=== PATIENT | male | born 1980 | race Caucasian/White ===

== ENCOUNTER 2017-09-12 11:43 | Inpatient (IN) | payer OTHER, SELFPAY ==
[2017-09-12] MEDS ORDERED: Fentanyl 100 MCG/2 ML VIAL ONE ×3 (11:55→15:34)
[2017-09-12] MEDS ORDERED: CEFAZOLIN/Water 2 GM/20 ML SYRINGE ONE (11:55)
[2017-09-12] MEDS ORDERED: Adacel (T-DAP) 0.5 ML VIAL ONE (11:55)
[2017-09-12 12:11] LABS: Hemoglobin 16.9 g/dL (14.0-18.0); Mean Corpuscular Volume 94.1 fl (80.0-94.0); Mean Platelet Volume 6.6 fL (7.4-10.4); Platelet Count 343 thou/uL (130-400); RBC Distribution Width 11.5 % (11.5-14.5); Red Blood Cell (RBC) Count 5.27 mill/uL (4.70-6.10); White Blood Cell (WBC) Count 22.3 thou/uL (4.8-10.8)
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
[2017-09-12 12:24] LABS: ALT (SGPT) 27 U/L (8-55); AST (SGOT) 23 U/L (5-34); Albumin 3.9 g/dL (3.5-5.0); Alkaline Phosphatase 70 U/L (40-150); Anion Gap 18 mmol/L (10-20); BUN (Urea Nitrogen) 11 mg/dL (8.9-20.6); Bilirubin, Total 1.2 mg/dL (0.2-1.2); Calc. Creatinine Clearance 0 mL/min (70-130); Calcium 9.8 mg/dL (7.8-10.44); Carbon Dioxide 20 mmol/L (22-29); Chloride 104 mmol/L (98-107); Estimated GFR-MDRD 64; Globulin 3.2 g/dL (2.4-3.5); Glucose 226 mg/dL (70-105); Potassium 3.7 mmol/L (3.5-5.1); Protein, Total 7.1 g/dL (6.0-8.3); Sodium 138 mmol/L (136-145)
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
[2017-09-12] MEDS ORDERED: Neomycin-Polymyxin 1 ML AMP ONE (12:39)
[2017-09-12] MEDS ORDERED: HYDROmorphone 0.5 MG/0.5 ML SYRINGE ONE ×2 (12:45→15:16)
[2017-09-12] MEDS ORDERED: Gentamicin 80 MG/2 ML VIAL ONE (12:46)
[2017-09-12] MEDS ORDERED: cefTRIAXone\\ROCEPHIN 2 GM VIAL ONE (12:46)
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
[2017-09-12] MEDS ORDERED: Fentanyl 250 MCG/5 ML VIAL ONE (12:52)
[2017-09-12] MEDS ORDERED: Ondansetron ODT 4 MG TAB PO PRN (12:54)
[2017-09-12] MEDS ORDERED: Dextrose 5% in Water 1,000 ML IV PRN (12:54)
[2017-09-12] MEDS ORDERED: Morphine 4 MG/ML Carpuject IVP PRN (12:54)
[2017-09-12] MEDS ORDERED: Dextrose 50% Abboject 50 ML SYRINGE SLOW IVP PRN (12:54)
[2017-09-12 12:56] LABS: Band 10 % (5-11); Eosinophils 2 % (0-10); Lymphocytes 11 % (21-51); MDiff Complete? YES; Monocytes 5 % (0-10); Neutrophil 72 % (42-75); PLT Morphology Comment Appears Adequate
[2017-09-12] MEDS ORDERED: ADMIXTURE FEE IVPB SCH (13:00)
[2017-09-12] MEDS ORDERED: SODIUM CHLORIDE IVPB SCH (13:00)
[2017-09-12] MEDS ORDERED: GENTAMICIN SULFATE IVPB SCH (13:00)
[2017-09-12] MEDS ORDERED: Morphine 4 MG/ML VIAL IV PRN ×2 (13:24)
[2017-09-12] MEDS ORDERED: Naloxone HCl 0.4 mg/ml Vial IV PRN (13:31)
[2017-09-12] MEDS ORDERED: Promethazine HCl 25 MG/ML VIAL IM PRN (13:31)
[2017-09-12] MEDS ORDERED: diphenhydrAMINE 50 MG/ML VIAL IM PRN (13:31)
[2017-09-12] MEDS ORDERED: Zolpidem Tartrate 5 MG TAB PO PRN (13:31)
[2017-09-12] MEDS ORDERED: Ondansetron HCl/PF 4 MG/2 ML Vial IVP PRN ×3 (13:31→16:12)
[2017-09-12] MEDS ORDERED: diphenhydrAMINE 50 MG/ML VIAL IVP PRN (13:31)
[2017-09-12 13:35] LABS: Bilirubin Negative (Negative); Blood, Urine Negative (Negative); Clarity CLEAR (Clear); Glucose, Urine (Dipstick) Negative (Negative); Leukocyte Negative (Negative); Nitrite Negative (Negative); Protein, Urine (Dipstick) Negative (Neg-Trace); Urobilinogen 0.2 mg/dL (0.2-1.0)
[2017-09-12 13:38] LABS: Specific Gravity, Urine 1.052 (1.002-1.036)
[2017-09-12] MEDS ORDERED: Communication Order-Pharmacy FS SCH ×2 (13:45)
[2017-09-12] MEDS ORDERED: TETANUS AND DIPHTHERIA TOX/PF 0.5 ML DISP.SYRIN IM SCH (13:45)
[2017-09-12] MEDS ORDERED: Albumin 5% 500 ML ONE (13:58)
--- NOTE | 2017-09-12 14:30 | CT ---
CTA OF THE PELVIS AND BILATERAL LOWER EXTREMITIES FOR RUNOFF: Date: 09/12/17 HISTORY: Comminuted femur fracture. Evaluate for vascular compromise to the left leg. TECHNIQUE: Multiple contiguous axial images were obtained in a CTA of the pelvis and bilateral lower extremities for runoff. This extends down to the ankles. 3D sagittal and coronal MIP reformats were performed. FINDINGS: There is a comminuted fracture of the left femur. The patient has an incidentally seen horseshoe kidn ey. The distal aorta is normal in caliber and branches in normal appearing common iliac arteries. The int ernal iliac arteries and common iliac arteries are normal in appearance. Both common femoral arteries are unremarkable. Superficial femoral arteries and profunda femoral fer marycruz are normal in appearance. The left superficial femoral artery is adjacent to some of the fractur e fragments, but there is no evidence of dissection or extravasation of contrast from the left superf icial femoral artery. Both popliteal arteries are patent. There is normal bilateral three vessel runoff. IMPRESSION: Comminuted fracture of the left femur with the left superficial femoral artery being immediately andre cent to the fracture fragments without definite vascular abnormality of the superficial femoral arter y. POS: [facility]
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
[2017-09-12] MEDS ORDERED: ISOVUE-370 76%-LOCM 1 ML ONE ×2 (15:51→15:52)
[2017-09-12] MEDS ORDERED: PHENYLEPHRINE-NS 100 MCG/ML 10 ML SYRINGE ONE (15:57)
[2017-09-12] MEDS ORDERED: Glycopyrrolate 0.2 MG/ML 5 ML SYRINGE ONE (15:57)
[2017-09-12] MEDS ORDERED: Lidocaine 1% PF 5 ML VIAL ONE (15:57)
[2017-09-12] MEDS ORDERED: Succinylcholine Chloride 20 MG/ML 10 ml SYRINGE FS ONE (15:57)
[2017-09-12] MEDS ORDERED: PROPOFOL 200 MG/20 ML VIAL ONE (15:57)
[2017-09-12] MEDS ORDERED: Promethazine HCl 25 MG/ML VIAL IM/IV PRN ×2 (16:12)
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
[2017-09-12] MEDS: Sodium Chloride 0.9% 1,000 ML IV SCH ×2 (17:00→20:55)
--- NOTE | 2017-09-12 19:25 | RAD ---
LEFT FEMUR ORIF FOUR FLUOROSCOPIC IMAGES: COMPARISON: Prior exam dated 09/12/2017. FINDINGS: Since the comparison exam, there has been interval placement of an external fixator, spanning the com minuted distal left femoral shaft fracture. There are two fixator pins seen within the proximal femo ral shaft and two fixator pins seen within the proximal tibia. There are radiolucent spanning rods n ear the fracture site. Fracture alignment is difficult to assess on the provided images. Fluoroscop ic time was 12.2 seconds. Total exposure was 1.69 mGy. IMPRESSION: Intraoperative C-arm images demonstrate external fixator placement of the left leg, spanning the comm inuted left distal femoral shaft fracture. POS: [facility]
[2017-09-12] MEDS: Acetaminophen 500 MG TAB PO SCH ×2 (20:54→23:10)
[2017-09-12] MEDS: traMADol HCl 50 MG TAB PO SCH ×2 (20:55→23:10)
[2017-09-12] MEDS: CEFAZOLIN/Water 2 GM/20 ML SYRINGE SLOW IVP SCH (22:19)
[2017-09-12] MEDS: Famotidine 20 MG TAB PO SCH (22:27)
--- NOTE | 2017-09-12 23:25 | PRG ---
DATE OF SERVICE: 09/12/2017 SUBJECTIVE: Patient is currently on the surgical floor. He has just been moved here from the [facility], where he had undergone irrigation, debridement, and external fixator placement of his left femur. The patient reportedly tolerated this procedure well and is currently asleep on the surgical floor. Patient does open his eyes to verbal stimuli, but states that he is still very drow sy. OBJECTIVE: CHEST: Lungs are clear to auscultation bilaterally. HEART: Regular rate and rhythm. ABDOMEN: Soft and nontender with hypoactive bowel sounds. EXTREMITIES: Neurovascularly intact x4. Right lower extremity has external fixator in place. He do es have strong pulses distally. ASSESSMENT AND PLAN: Status post crush injury. The patient was noted to have climbing of CK on his chemistries and a borderline renal function, so we will start a bicarbonate drip and recheck his labs in the morning. Otherwise, continue supportive care and per Orthopedics, the patient will most like ly go for IM nailing of his femur on Tuesday.
[2017-09-13] MEDS: Sodium Bicarbonate 150 MEQ in Dextrose 5% in Water 1,000 ML IV SCH ×4 (00:03→08:33)
[2017-09-13] MEDS: Acetaminophen 500 MG TAB PO SCH ×4 (04:09→22:50)
[2017-09-13] MEDS: traMADol HCl 50 MG TAB PO SCH ×4 (04:10→22:50)
[2017-09-13] MEDS: HYDROmorphone 10 mg/100 ml CADD IVPB PRN (04:44)
[2017-09-13] MEDS: CEFAZOLIN/Water 2 GM/20 ML SYRINGE SLOW IVP SCH ×3 (04:44→21:18)
[2017-09-13 06:02] LABS: #Lymphocytes 0.5 thou/uL (1.20-3.40); #Monocytes 1.4 thou/uL (0.11-0.59); #Neutrophils 9.2 thou/uL (1.40-6.50); %Eosinophils 0.1 % (0.0-10.0); %Lymphocytes 4.5 % (21.0-51.0); %Monocytes 12.3 % (0.0-10.0); %Neutrophils 83.1 % (42.0-75.0); Mean Corpuscular HGB CONC 33.1 g/dL (32.0-36.0); Mean Corpuscular Hemoglobin 31.6 pg (27.0-31.0); Mean Corpuscular Volume 95.4 fl (80.0-94.0); Mean Platelet Volume 6.5 fL (7.4-10.4); Platelet Count 222 thou/uL (130-400); RBC Distribution Width 11.5 % (11.5-14.5); Red Blood Cell (RBC) Count 3.49 mill/uL (4.70-6.10)
[2017-09-13 06:46] LABS: Anion Gap 11 mmol/L (10-20); BUN (Urea Nitrogen) 10 mg/dL (8.9-20.6); CK (CPK) 1494 U/L (30-200); Calc. Creatinine Clearance 0 mL/min (70-130); Calcium 7.9 mg/dL (7.8-10.44); Carbon Dioxide 27 mmol/L (22-29); Chloride 104 mmol/L (98-107); Estimated GFR-MDRD Greater than 90; Glucose 157 mg/dL (70-105); Phosphorus 3.6 mg/dL (2.3-4.7); Potassium 4.3 mmol/L (3.5-5.1); Sodium 138 mmol/L (136-145)
[2017-09-13] MEDS: Famotidine 20 MG TAB PO SCH ×2 (08:39→21:18)
[2017-09-13] MEDS ORDERED: Enoxaparin Sodium 40 MG/0.4 ML SYRINGE SC SCH ×2 (09:00→11:00)
[2017-09-13] MEDS: Scopolamine 1.5 mg/72 hour Patch TD SCH (10:16)
[2017-09-13] MEDS: Sodium Chloride 0.9% 1,000 ML IV SCH ×4 (12:09→22:45)
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
[2017-09-13] MEDS: cefTRIAXone\\ROCEPHIN 2 GM in Sodium Chloride 0.9% 100 ML IVPB SCH (12:11)
[2017-09-13] MEDS: Oxazepam 10 MG CAP PO SCH ×2 (15:00→22:54)
[2017-09-13] MEDS ORDERED: Sodium Chloride 0.9% 1,000 ML IV SCH (21:30)
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
[2017-09-14] MEDS: Sodium Chloride 0.9% 1,000 ML IV SCH ×4 (03:40→21:24)
[2017-09-14] MEDS: Acetaminophen 500 MG TAB PO SCH ×2 (04:49→08:11)
[2017-09-14] MEDS: traMADol HCl 50 MG TAB PO SCH ×2 (04:49→08:11)
[2017-09-14] MEDS: CEFAZOLIN/Water 2 GM/20 ML SYRINGE SLOW IVP SCH ×3 (04:50→21:25)
[2017-09-14] MEDS: Folic Acid 1 MG TAB PO SCH (08:10)
[2017-09-14] MEDS: Famotidine 20 MG TAB PO SCH ×2 (08:10→21:25)
[2017-09-14] MEDS: Oxazepam 10 MG CAP PO SCH ×3 (08:11→21:29)
[2017-09-14 09:30] LABS: #Lymphocytes 1.1 thou/uL (1.20-3.40); #Monocytes 0.9 thou/uL (0.11-0.59); #Neutrophils 6.4 thou/uL (1.40-6.50); %Basophils 0.1 % (0.0-1.0); %Eosinophils 0.3 % (0.0-10.0); %Lymphocytes 13.1 % (21.0-51.0); %Monocytes 10.6 % (0.0-10.0); %Neutrophils 75.9 % (42.0-75.0); Hemoglobin 8.8 g/dL (14.0-18.0); Mean Corpuscular HGB CONC 33.8 g/dL (32.0-36.0); Mean Corpuscular Hemoglobin 32.6 pg (27.0-31.0); Mean Corpuscular Volume 96.6 fl (80.0-94.0); Mean Platelet Volume 6.6 fL (7.4-10.4); Platelet Count 160 thou/uL (130-400); RBC Distribution Width 11.4 % (11.5-14.5); Red Blood Cell (RBC) Count 2.68 mill/uL (4.70-6.10); White Blood Cell (WBC) Count 8.4 thou/uL (4.8-10.8)
[2017-09-14 09:54] LABS: Anion Gap 7 mmol/L (10-20); BUN (Urea Nitrogen) 7 mg/dL (8.9-20.6); Calc. Creatinine Clearance 0 mL/min (70-130); Calcium 7.9 mg/dL (7.8-10.44); Carbon Dioxide 28 mmol/L (22-29); Chloride 104 mmol/L (98-107); Estimated GFR-MDRD Greater than 90; Glucose 100 mg/dL (70-105); Magnesium 1.8 mg/dL (1.6-2.6); Phosphorus 1.9 mg/dL (2.3-4.7); Potassium 3.9 mmol/L (3.5-5.1); Sodium 135 mmol/L (136-145)
[2017-09-14] MEDS ORDERED: MAGNESIUM SULFATE IVPB SCH (10:15)
[2017-09-14] MEDS ORDERED: [UNRECOGNIZED DRUG - OTHER] IVPB SCH (10:15)
[2017-09-14] MEDS ORDERED: ADMIXTURE FEE IVPB SCH (10:15)
[2017-09-14] MEDS ORDERED: POTASSIUM PHOSPHATE IVPB SCH (10:15)
--- NOTE | 2017-09-14 10:33 | PQF ---
DATE: 09-14-17 ATTN: DR. REBECCA KONG Please exercise your independent, professional judgment in responding to the clarification form. Clinical indicators are provided on the bottom of this form for your review Please check appropriate box(s): [ x ] Acute blood loss anemia [ ] Post-op anemia related to acute blood loss [ ] Other diagnosis [ ] Unable to determine In addition, please specify: Present on Admission (POA): [ x ] Yes [ ] No [ ] Unable to determine For continuity of documentation, please document condition throughout progress notes and discharge summary. Thank You. CLINICAL INDICATORS - SIGNS / SYMPTOMS / LABS HEMOGLOBIN: 09-12-17: 16.9 09-13-17: 11.0 09-14-17: 8.8 HEMATOCRIT: 09-12-17: 49.6 09-13-17: 33.3 09-14-17: 25.9 HYPOTENSION: 09-13-17: 93/58, 93/58 09-14-17: 91/58 ER DOCUMENTATION: BLEEDING MOSTLY CONTROLLED BUT LOST APPROX 500CC OF BLOOD ON SCENE. OPERATIVE NOTE 09-12-17: ESTIMATED BLOOD LOSS: 200 ML RISK FACTORS: H&P: GRADE 3B OPEN COMMINUTED DISPLACED DISTAL TWO-THIRDS LEFT FEMUR FRACTURE OPERATIVE NOTE 09-12-17: IRRIGATION AND DEBRIDEMENT OF LEFT GRADE 3 OPEN FEMUR FX, EXTERNAL FIXATION OF LEFT OPEN FEMUR FRACTURE TREATMENTS:MONITORING H&H NURSING NOTE 09-14-17: ORDERED 1L BOLUS NS (MAR) FOLIC ACID (This form is maintained as a part of the permanent medical record) 2014 [employer], [employer]. All Rights Reserved LESLIE [email or web address] Office: [phone] [facility]ITALHa[facility]
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
[2017-09-14] MEDS ORDERED: Midazolam HCl 2 mg/2 ml Vial ONE (10:55)
[2017-09-14] MEDS ORDERED: Fentanyl 100 MCG/2 ML VIAL ONE ×3 (10:55→13:23)
[2017-09-14] MEDS ORDERED: Ondansetron HCl/PF 4 MG/2 ML Vial ONE ×2 (10:56→11:18)
[2017-09-14] MEDS ORDERED: cefTRIAXone\\ROCEPHIN 1 GM VIAL ONE (11:09)
[2017-09-14] MEDS ORDERED: Glycopyrrolate 0.2 MG/ML 5 ML SYRINGE ONE (11:18)
[2017-09-14] MEDS ORDERED: Esmolol 100 MG/10 ML VIAL ONE (11:18)
[2017-09-14] MEDS ORDERED: Dexamethasone 20 MG/5 ML VIAL ONE ×2 (11:18)
[2017-09-14] MEDS ORDERED: PROPOFOL 200 MG/20 ML VIAL ONE (11:18)
[2017-09-14] MEDS ORDERED: Lidocaine 1% PF 5 ML VIAL ONE (11:18)
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
[2017-09-14] MEDS ORDERED: cefTRIAXone\\ROCEPHIN 2 GM in Sodium Chloride 0.9% 100 ML IVPB SCH (11:45)
[2017-09-14] MEDS ORDERED: HYDROmorphone 2 MG/ML VIAL SLOW IVP PRN ×2 (12:21)
[2017-09-14] MEDS ORDERED: Promethazine HCl 25 MG/ML VIAL SLOW IVP PRN ×2 (12:21)
[2017-09-14] MEDS ORDERED: Morphine Sulfate 2 MG/ML SYRINGE SLOW IVP PRN ×2 (12:21)
[2017-09-14] MEDS ORDERED: Meperidine HCl/PF 25 MG/ML VIAL SLOW IVP PRN ×2 (12:21)
[2017-09-14] MEDS ORDERED: HYDROmorphone 0.5 MG/0.5 ML SYRINGE ONE ×3 (14:18→15:14)
[2017-09-14 14:33] LABS: Hemoglobin 9.4 g/dL (14.0-18.0)
[2017-09-14] MEDS: cefTRIAXone\\ROCEPHIN 2 GM in Sodium Chloride 0.9% 100 ML IVPB SCH (15:34)
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
--- NOTE | 2017-09-14 16:45 | RAD ---
TWO VIEWS OF THE LEFT FEMUR: 09/14/17 COMPARISON: 09/12/17 HISTORY: Comminuted distal femur fracture. FINDINGS: Two views of the left femur, shows the patient to be status post retrograde intramedullary lenora fixati on of a comminuted distal femoral diaphyseal fracture. There is better alignment of the fracture. Air in the soft tissues is from recent surgery. IMPRESSION: Status post ORIF of femur fracture without evidence of complication. POS: C
[2017-09-14] MEDS: HYDROmorphone 10 mg/100 ml CADD IVPB PRN (17:14)
[2017-09-14] MEDS: HYDROcodone/Acetaminophen 10/325 mg Tablet PO SCH ×3 (17:25→21:25)
--- NOTE | 2017-09-14 18:23 | RAD ---
LEFT FEMUR TWO VIEWS: 09/14/17 Six portable fluoroscopic spot views are presented for interpretation. HISTORY: 36-year-old male for postoperative evaluation. COMPARISON: 09/02/17. An intramedullary lenora has been placed stabilizing a very markedly displaced, very markedly comminuted distal femoral shaft fracture. IMPRESSION: Intramedullary lenora placed stabilizing the femur and very extensively comminuted and displaced femoral diaphyseal fracture. Followup full length plain films of the right femur is suggested. POS: VERNON
[2017-09-15] MEDS: Sodium Chloride 0.9% 1,000 ML IV SCH ×5 (02:10→19:44)
[2017-09-15] MEDS: HYDROcodone/Acetaminophen 10/325 mg Tablet PO SCH ×3 (02:13→11:07)
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
[2017-09-15] MEDS: CEFAZOLIN/Water 2 GM/20 ML SYRINGE SLOW IVP SCH ×3 (05:03→23:41)
[2017-09-15 05:10] LABS: #Neutrophils 7.1 thou/uL (1.40-6.50); %Eosinophils 0.1 % (0.0-10.0); %Lymphocytes 10.5 % (21.0-51.0); %Neutrophils 78.4 % (42.0-75.0); Mean Corpuscular HGB CONC 34.6 g/dL (32.0-36.0); Mean Corpuscular Hemoglobin 33.3 pg (27.0-31.0); Mean Corpuscular Volume 96.1 fl (80.0-94.0); Platelet Count 166 thou/uL (130-400); RBC Distribution Width 11.1 % (11.5-14.5); Red Blood Cell (RBC) Count 2.39 mill/uL (4.70-6.10)
[2017-09-15 05:21] LABS: Anion Gap 5 mmol/L (10-20); BUN (Urea Nitrogen) 7 mg/dL (8.9-20.6); CK (CPK) 2634 U/L (30-200); Calc. Creatinine Clearance 223 mL/min (70-130); Calcium 8.1 mg/dL (7.8-10.44); Carbon Dioxide 29 mmol/L (22-29); Chloride 105 mmol/L (98-107); Estimated GFR-MDRD Greater than 90; Glucose 115 mg/dL (70-105); Magnesium 2.2 mg/dL (1.6-2.6); Phosphorus 2.3 mg/dL (2.3-4.7); Potassium 3.8 mmol/L (3.5-5.1); Sodium 135 mmol/L (136-145)
[2017-09-15] MEDS ORDERED: Potassium Chloride 20 MEQ TAB PO SCH ×2 (08:00)
[2017-09-15] MEDS ORDERED: Sodium Chloride 0.9% 250 ML IV SCH (08:00)
[2017-09-15] MEDS: Ascorbic Acid 500 mg Chewable Tablet PO SCH ×2 (08:41→17:44)
[2017-09-15] MEDS: Folic Acid 1 MG TAB PO SCH (08:42)
[2017-09-15] MEDS: Senokot S 8.6-50 MG TAB PO SCH ×2 (08:42→21:10)
[2017-09-15] MEDS: Oxazepam 10 MG CAP PO SCH ×3 (08:42→21:10)
[2017-09-15] MEDS: Ferrous Sulfate 325 MG TAB PO SCH ×2 (08:42→17:45)
[2017-09-15] MEDS: Polyethylene Glycol 3350 17 GM Packet PO SCH (08:42)
[2017-09-15] MEDS: Enoxaparin Sodium 40 MG/0.4 ML SYRINGE SC SCH (08:42)
[2017-09-15] MEDS: Famotidine 20 MG TAB PO SCH ×2 (08:42→21:10)
[2017-09-15] MEDS ORDERED: traMADol HCl 50 MG TAB PO PRN (10:14)
[2017-09-15] MEDS ORDERED: HYDROcodone/Acetaminophen 10/325 mg Tablet PO PRN (10:16)
[2017-09-15] MEDS ORDERED: traMADol HCl 50 MG TAB PO SCH (10:30)
[2017-09-15] MEDS: Ibuprofen 800 MG TAB PO SCH ×2 (10:56→17:45)
[2017-09-15] MEDS: traMADol HCl 50 MG TAB PO SCH ×3 (10:56→21:54)
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
[2017-09-16] MEDS: Ibuprofen 800 MG TAB PO SCH ×3 (02:54→17:34)
[2017-09-16] MEDS: traMADol HCl 50 MG TAB PO SCH ×4 (03:58→21:41)
[2017-09-16] MEDS: CEFAZOLIN/Water 2 GM/20 ML SYRINGE SLOW IVP SCH ×4 (04:33→21:41)
[2017-09-16] MEDS: Ferrous Sulfate 325 MG TAB PO SCH ×2 (09:06→17:34)
[2017-09-16] MEDS: Folic Acid 1 MG TAB PO SCH (09:06)
[2017-09-16] MEDS: Famotidine 20 MG TAB PO SCH ×2 (09:06→21:40)
[2017-09-16] MEDS: Oxazepam 10 MG CAP PO SCH ×3 (09:06→21:41)
[2017-09-16] MEDS: Enoxaparin Sodium 40 MG/0.4 ML SYRINGE SC SCH (09:06)
[2017-09-16] MEDS: Ascorbic Acid 500 mg Chewable Tablet PO SCH ×2 (09:06→17:34)
[2017-09-16 09:23] LABS: Anion Gap 10 mmol/L (10-20); BUN (Urea Nitrogen) 10 mg/dL (8.9-20.6); CK (CPK) 2728 U/L (30-200); Calc. Creatinine Clearance 226 mL/min (70-130); Calcium 7.8 mg/dL (7.8-10.44); Carbon Dioxide 26 mmol/L (22-29); Chloride 104 mmol/L (98-107); Estimated GFR-MDRD Greater than 90; Glucose 120 mg/dL (70-105); Magnesium 1.8 mg/dL (1.6-2.6); Phosphorus 1.6 mg/dL (2.3-4.7); Potassium 3.5 mmol/L (3.5-5.1); Sodium 136 mmol/L (136-145)
[2017-09-16] MEDS: Scopolamine 1.5 mg/72 hour Patch TD SCH (10:23)
[2017-09-16] MEDS: Polyethylene Glycol 3350 17 GM Packet PO SCH (11:11)
[2017-09-16] MEDS: Senokot S 8.6-50 MG TAB PO SCH (11:12)
[2017-09-16] MEDS: HYDROcodone/Acetaminophen 10/325 mg Tablet PO PRN ×2 (12:26→21:41)
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
[2017-09-17] MEDS: Senokot S 8.6-50 MG TAB PO SCH ×3 (01:09→21:43)
[2017-09-17] MEDS: Ibuprofen 800 MG TAB PO SCH ×3 (03:55→17:58)
[2017-09-17] MEDS: traMADol HCl 50 MG TAB PO SCH ×4 (03:56→21:44)
[2017-09-17] MEDS: HYDROcodone/Acetaminophen 10/325 mg Tablet PO PRN ×3 (03:56→21:44)
[2017-09-17] MEDS: Folic Acid 1 MG TAB PO SCH (08:09)
[2017-09-17] MEDS: Enoxaparin Sodium 40 MG/0.4 ML SYRINGE SC SCH (08:09)
[2017-09-17] MEDS: Ascorbic Acid 500 mg Chewable Tablet PO SCH ×2 (08:09→16:43)
[2017-09-17] MEDS: Famotidine 20 MG TAB PO SCH ×2 (08:09→21:43)
[2017-09-17] MEDS: Oxazepam 10 MG CAP PO SCH ×3 (08:10→21:43)
[2017-09-17] MEDS: Ferrous Sulfate 325 MG TAB PO SCH ×2 (08:10→16:43)
[2017-09-17] MEDS: Polyethylene Glycol 3350 17 GM Packet PO SCH (08:10)
[2017-09-17 08:12] LABS: #Eosinphils 0.3 thou/uL (0.0-0.7); #Lymphocytes 1.3 thou/uL (1.20-3.40); #Monocytes 0.7 thou/uL (0.11-0.59); #Neutrophils 4.4 thou/uL (1.40-6.50); %Basophils 0.4 % (0.0-1.0); %Eosinophils 5.1 % (0.0-10.0); %Lymphocytes 19.3 % (21.0-51.0); %Monocytes 9.7 % (0.0-10.0); %Neutrophils 65.6 % (42.0-75.0); Hemoglobin 7.3 g/dL (14.0-18.0); Mean Corpuscular HGB CONC 34.7 g/dL (32.0-36.0); Mean Corpuscular Hemoglobin 32.7 pg (27.0-31.0); Mean Corpuscular Volume 94.4 fl (80.0-94.0); Mean Platelet Volume 5.9 fL (7.4-10.4); Platelet Count 258 thou/uL (130-400); RBC Distribution Width 11.3 % (11.5-14.5); Red Blood Cell (RBC) Count 2.24 mill/uL (4.70-6.10); White Blood Cell (WBC) Count 6.7 thou/uL (4.8-10.8)
[2017-09-17] MEDS: diphenhydrAMINE 25 MG CAP PO PRN ×2 (11:21→21:44)
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
[2017-09-18] MEDS: traMADol HCl 50 MG TAB PO SCH ×4 (03:48→22:16)
[2017-09-18] MEDS: Ibuprofen 800 MG TAB PO SCH ×3 (03:48→17:37)
[2017-09-18] MEDS: Polyethylene Glycol 3350 17 GM Packet PO SCH (07:49)
[2017-09-18] MEDS: Senokot S 8.6-50 MG TAB PO SCH (07:49)
[2017-09-18] MEDS: HYDROcodone/Acetaminophen 10/325 mg Tablet PO PRN ×3 (07:51→22:15)
[2017-09-18] MEDS: Famotidine 20 MG TAB PO SCH ×2 (07:51→20:45)
[2017-09-18] MEDS: Ascorbic Acid 500 mg Chewable Tablet PO SCH ×2 (07:51→18:28)
[2017-09-18] MEDS: Oxazepam 10 MG CAP PO SCH ×3 (07:51→20:45)
[2017-09-18] MEDS: Ferrous Sulfate 325 MG TAB PO SCH ×2 (07:52→16:47)
[2017-09-18] MEDS: Enoxaparin Sodium 40 MG/0.4 ML SYRINGE SC SCH (07:52)
[2017-09-18] MEDS: Folic Acid 1 MG TAB PO SCH (07:52)
[2017-09-18] MEDS ORDERED: Senokot S 8.6-50 MG TAB PO PRN (08:02)
[2017-09-18] MEDS ORDERED: Polyethylene Glycol 3350 17 GM Packet PO PRN (08:03)
[2017-09-18 08:04] LABS: Hemoglobin 7.6 g/dL (14.0-18.0); Mean Corpuscular HGB CONC 34.9 g/dL (32.0-36.0); Mean Corpuscular Hemoglobin 33.1 pg (27.0-31.0); Mean Platelet Volume 5.8 fL (7.4-10.4); Platelet Count 313 thou/uL (130-400); RBC Distribution Width 11.5 % (11.5-14.5); Red Blood Cell (RBC) Count 2.29 mill/uL (4.70-6.10); White Blood Cell (WBC) Count 6.9 thou/uL (4.8-10.8)
[2017-09-18 08:05] LABS: Anion Gap 9 mmol/L (10-20); BUN (Urea Nitrogen) 12 mg/dL (8.9-20.6); CK (CPK) 1067 U/L (30-200); Calc. Creatinine Clearance 216 mL/min (70-130); Calcium 8.5 mg/dL (7.8-10.44); Carbon Dioxide 28 mmol/L (22-29); Chloride 106 mmol/L (98-107); Estimated GFR-MDRD Greater than 90; Glucose 103 mg/dL (70-105); Magnesium 1.9 mg/dL (1.6-2.6); Phosphorus 3.4 mg/dL (2.3-4.7); Potassium 3.9 mmol/L (3.5-5.1); Sodium 139 mmol/L (136-145)
[2017-09-18 09:14] LABS: Band 4 % (5-11); Lymphocytes 14 % (21-51); MDiff Complete? YES; Metamyelocyte 7 % (0-0); Monocytes 5 % (0-10); Myelocyte 3 % (0-0); Neutrophil 67 % (42-75); PLT Morphology Comment Appears Adequate; RBC Morphology Normal
--- NOTE | 2017-09-18 09:29 | PRG ---
DATE OF SERVICE: 09/18/2017 ATTENDING PHYSICIAN: Dr. Prem Díaz. SUBJECTIVE: Mr. Espinoza is a 36-year-old man who is status post crush injury to the left leg. This is hospital day #18. He was treated initially with external fixator and now is postoperative day #4 st atus post ORIF of the left distal femur fracture. He is awake, alert, and has remained hemodynamical ly stable. He has had adequate pain control. He is having normal bowel function. He is tolerating regular diet. OBJECTIVE: VITAL SIGNS: Temperature 98, pulse 100, respirations 18, O2 sat 99% on room air, blood pressure 147/ 79. HEENT: Atraumatic, normocephalic. CARDIOVASCULAR: Regular rate and rhythm. Heart sounds normal. RESPIRATORY: Bilateral breath sounds. Clear to auscultation. No respiratory distress. ABDOMEN: Soft, nontender, nondistended. EXTREMITIES: Bilateral upper extremities within normal limits. Right lower extremity within normal limits. Knee immobilizer with Mars wrap in place to left lower extremity. Cap refill brisk. 2+ puls es. Neurovascular intact in all extremities. ASSESSMENT: 1. Status post crush injury to the left distal femur with open left distal femur fracture, status po st repair. 2. Acute rhabdomyolysis, stable. 3. Acute blood loss anemia, hemoglobin stable. PLAN: 1. Continue mobilization with physical and occupational therapy. 2. Daily labs pending this a.m. We will follow up. 3. Case management following the discharge planning. Anticipate will discharge to inpatient rehab v ers home with outpatient therapy. The patient is ready to move to rehab in [place] area of [place], [place] when worker's comp funding improved. 4. Lovenox for DVT prophylaxis. 5. Pepcid for PUD prophylaxis. The patient was seen and examined with Dr. Díaz who agrees with plan.
[2017-09-18] MEDS: diphenhydrAMINE 25 MG CAP PO PRN (22:15)
[2017-09-19] MEDS: Ibuprofen 800 MG TAB PO SCH ×2 (02:52→09:58)
[2017-09-19] MEDS: HYDROcodone/Acetaminophen 10/325 mg Tablet PO PRN ×2 (02:56→08:36)
[2017-09-19] MEDS: traMADol HCl 50 MG TAB PO SCH ×2 (05:21→09:58)
[2017-09-19 07:40] LABS: Hemoglobin 8.1 g/dL (14.0-18.0); Mean Corpuscular HGB CONC 34.4 g/dL (32.0-36.0); Mean Corpuscular Hemoglobin 32.3 pg (27.0-31.0); Mean Corpuscular Volume 94.1 fl (80.0-94.0); Mean Platelet Volume 5.4 fL (7.4-10.4); Platelet Count 383 thou/uL (130-400); RBC Distribution Width 11.8 % (11.5-14.5); Red Blood Cell (RBC) Count 2.49 mill/uL (4.70-6.10); White Blood Cell (WBC) Count 7.5 thou/uL (4.8-10.8)
[2017-09-19] MEDS: Oxazepam 10 MG CAP PO SCH ×3 (08:31→22:14)
[2017-09-19] MEDS: Famotidine 20 MG TAB PO SCH ×2 (08:31→22:14)
[2017-09-19] MEDS: Ascorbic Acid 500 mg Chewable Tablet PO SCH ×2 (08:31→17:59)
[2017-09-19] MEDS: Ferrous Sulfate 325 MG TAB PO SCH ×2 (08:32→17:58)
[2017-09-19] MEDS: Enoxaparin Sodium 40 MG/0.4 ML SYRINGE SC SCH (08:32)
[2017-09-19] MEDS: Folic Acid 1 MG TAB PO SCH (08:32)
[2017-09-19] MEDS: Scopolamine 1.5 mg/72 hour Patch TD SCH (08:33)
[2017-09-19 09:15] LABS: Band 7 % (5-11); Eosinophils 3 % (0-10); Lymphocytes 23 % (21-51); MDiff Complete? YES; Metamyelocyte 4 % (0-0); Monocytes 7 % (0-10); Myelocyte 3 % (0-0); Neutrophil 53 % (42-75); PLT Morphology Comment Appears Adequate; Polychromasia SLIGHT = 2-3 cells (100X) (0-2/hpf)
[2017-09-19] MEDS ORDERED: Ibuprofen 800 MG TAB PO PRN (10:22)
[2017-09-19] MEDS: HYDROcodone/Acetaminophen 10/325 mg Tablet PO SCH ×4 (11:28→22:14)
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
[2017-09-19] MEDS: Gabapentin 300 MG CAP PO SCH ×2 (14:25→22:15)
[2017-09-19] MEDS ORDERED: Clopidogrel Bisulfate 75 MG TAB ONE (17:58)
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
[2017-09-20] MEDS: HYDROcodone/Acetaminophen 10/325 mg Tablet PO SCH ×3 (03:05→11:13)
[2017-09-20 07:32] LABS: #Eosinphils 0.7 thou/uL (0.0-0.7); #Lymphocytes 1.9 thou/uL (1.20-3.40); #Monocytes 0.9 thou/uL (0.11-0.59); #Neutrophils 5.8 thou/uL (1.40-6.50); %Basophils 0.5 % (0.0-1.0); %Eosinophils 7.7 % (0.0-10.0); %Lymphocytes 19.7 % (21.0-51.0); %Neutrophils 62.1 % (42.0-75.0); Hemoglobin 8.8 g/dL (14.0-18.0); Mean Corpuscular Hemoglobin 31.6 pg (27.0-31.0); Mean Corpuscular Volume 95.9 fl (80.0-94.0); Mean Platelet Volume 5.6 fL (7.4-10.4); Platelet Count 454 thou/uL (130-400); RBC Distribution Width 12.1 % (11.5-14.5); Red Blood Cell (RBC) Count 2.78 mill/uL (4.70-6.10); White Blood Cell (WBC) Count 9.4 thou/uL (4.8-10.8)
[2017-09-20 07:53] LABS: Anion Gap 12 mmol/L (10-20); BUN (Urea Nitrogen) 11 mg/dL (8.9-20.6); Calc. Creatinine Clearance 219 mL/min (70-130); Carbon Dioxide 28 mmol/L (22-29); Chloride 104 mmol/L (98-107); Estimated GFR-MDRD Greater than 90; Glucose 105 mg/dL (70-105); Magnesium 2.1 mg/dL (1.6-2.6); Phosphorus 3.5 mg/dL (2.3-4.7); Potassium 4.8 mmol/L (3.5-5.1); Sodium 139 mmol/L (136-145)
[2017-09-20] MEDS: Famotidine 20 MG TAB PO SCH (08:45)
[2017-09-20] MEDS: Ferrous Sulfate 325 MG TAB PO SCH (08:45)
[2017-09-20] MEDS: Folic Acid 1 MG TAB PO SCH (08:45)
[2017-09-20] MEDS: Ascorbic Acid 500 mg Chewable Tablet PO SCH (08:45)
[2017-09-20] MEDS: Gabapentin 300 MG CAP PO SCH (08:45)
[2017-09-20] MEDS: Enoxaparin Sodium 40 MG/0.4 ML SYRINGE SC SCH (08:45)
[2017-09-20] MEDS: Oxazepam 10 MG CAP PO SCH (08:45)
[2017-09-20] MEDS ORDERED: Docusate 100 MG CAP PO SCH (09:00)
[2017-09-20 12:17] VITALS: BP 118/69; TEMP 97.7
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
== END 2017-09-20 15:17 | disposition home health service (06) | DRG 907 ==
LOC: ERS 11:43 → SDC 12:47 → SURG B 17:09
PROVIDERS: ADMIT Surgery; ATTEND Surgery
PROC: 0QHC05Z Insertion of External Fixation Device into Left Lower Femur, Open Approach (ICD-10-PCS; principal; 2017-09-12)
PROC: 0QBC0ZZ Excision of Left Lower Femur, Open Approach (ICD-10-PCS; 2017-09-12)
PROC: 0QSC06Z Reposition Left Lower Femur with Intramedullary Internal Fixation Device, Open Approach (ICD-10-PCS; 2017-09-14)
PROC: 0QPCX5Z Removal of External Fixation Device from Left Lower Femur, External Approach (ICD-10-PCS; 2017-09-14)
DX: S77.22XA Crushing injury of left hip with thigh, initial encounter (principal); S72.402C Unspecified fracture of lower end of left femur, initial encounter for open fracture type IIIA, IIIB, or IIIC; M62.82 Rhabdomyolysis; D62 Acute posthemorrhagic anemia; E83.39 Other disorders of phosphorus metabolism; E66.01 Morbid (severe) obesity due to excess calories; E87.6 Hypokalemia; V58.3XXA Unspecified occupant of pick-up truck or van injured in noncollision transport accident in nontraffic accident, initial encounter; F17.210 Nicotine dependence, cigarettes, uncomplicated; Z68.35 Body mass index [BMI] 35.0-35.9, adult
CPT/HCPCS: 36415; 51702; 70450; 71045; 71260; 72125; 72170; 72191; 74177; 76001; 80048; 80053; 81003; 82550; 83735; 83874; 84100; 85025; 86850; 86900; 86901; 90471; 90715; 96374; 96375; C1713; C1769; G0390; G8978-GP-CM; G8979-GP-CJ; G8979-GP-CK; G8987-GO-CL; G8988-GO-CI; J0696; J1100; J1170; J1580; J1650; J2001; J2250; J2405; J2550; J2704; J3010; J3475; J7050; J7070; P9045; Q0162

== ENCOUNTER 2017-11-15 16:36 | Emergency (ER) | payer OTHER, SELFPAY ==
[2017-11-15 17:55] LABS: #Basophils 0.1 thou/uL (0.0-0.2); #Eosinphils 0.1 thou/uL (0.0-0.7); #Lymphocytes 1.9 thou/uL (1.20-3.40); #Monocytes 0.7 thou/uL (0.11-0.59); #Neutrophils 6.2 thou/uL (1.40-6.50); %Basophils 0.8 % (0.0-1.0); %Eosinophils 1.6 % (0.0-10.0); %Lymphocytes 20.6 % (21.0-51.0); %Monocytes 8.1 % (0.0-10.0); Hemoglobin 14.9 g/dL (14.0-18.0); Mean Corpuscular HGB CONC 33.1 g/dL (32.0-36.0); Mean Corpuscular Hemoglobin 29.6 pg (27.0-31.0); Mean Corpuscular Volume 89.2 fL (78.0-98.0); Mean Platelet Volume 5.9 fL (7.4-10.4); Platelet Count 381 thou/uL (130-400); RBC Distribution Width 12.8 % (11.5-14.5); Red Blood Cell (RBC) Count 5.06 mill/uL (4.70-6.10)
[2017-11-15] MEDS ORDERED: Ketorolac Tromethamine 30 MG/ML VIAL ONE (18:02)
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
== END 2017-11-15 20:30 | disposition home or self-care (01) ==
LOC: ERS 16:36
DX: G89.18 Other acute postprocedural pain (principal); M79.662 Pain in left lower leg; F17.210 Nicotine dependence, cigarettes, uncomplicated; Z79.899 Other long term (current) drug therapy
CPT/HCPCS: 36415; 82550; 85025; 96374; J1885

== ENCOUNTER 2017-12-21 08:42 | Inpatient (IN) | payer OTHER ==
[2017-12-20 12:39] VITALS: BMI 36.5
[2017-12-21] MEDS ORDERED: CEFAZOLIN/Water 2 GM/20 ML SYRINGE ONE (10:48)
[2017-12-21] MEDS ORDERED: Famotidine/PF 20 mg/2ml Vial ONE (10:48)
[2017-12-21] MEDS ORDERED: Clindamycin/D5W 900 mg/50 ml Premix Bag ONE (10:48)
[2017-12-21] MEDS ORDERED: Levofloxacin 500 mg/D5W 100 ml Premix Bag ONE (10:48)
[2017-12-21] MEDS ORDERED: Scopolamine 1.5 mg/72 hour Patch ONE (10:48)
[2017-12-21] MEDS ORDERED: Ondansetron HCl/PF 4 MG/2 ML Vial ONE (10:48)
[2017-12-21] MEDS ORDERED: Fentanyl 100 MCG/2 ML VIAL ONE ×4 (12:03→15:42)
[2017-12-21] MEDS ORDERED: Midazolam HCl 2 mg/2 ml Vial ONE (12:20)
[2017-12-21] MEDS ORDERED: PHENYLEPHRINE-NS 100 MCG/ML 10 ML SYRINGE ONE (13:58)
[2017-12-21] MEDS ORDERED: Lidocaine 1% PF 5 ML VIAL ONE (13:58)
[2017-12-21] MEDS ORDERED: PROPOFOL 200 MG/20 ML VIAL ONE (13:58)
[2017-12-21] MEDS ORDERED: Morphine 4 MG/ML VIAL SLOW IVP PRN (14:41)
[2017-12-21] MEDS ORDERED: Milk Of Magnesia 30 ML UDCUP PO PRN (14:41)
[2017-12-21] MEDS ORDERED: Acetaminophen 325 MG TAB PO PRN (14:41)
[2017-12-21] MEDS ORDERED: Ondansetron HCl/PF 4 MG/2 ML Vial IV PRN (14:41)
[2017-12-21] MEDS ORDERED: Communication Order-Pharmacy FS SCH (14:45)
[2017-12-21] MEDS ORDERED: HYDROmorphone 0.5 MG/0.5 ML SYRINGE ONE ×2 (14:55→15:07)
[2017-12-21] MEDS ORDERED: Ketorolac Tromethamine 30 MG/ML VIAL IVP PRN (14:56)
[2017-12-21] MEDS ORDERED: HYDROmorphone 2 MG/ML VIAL SLOW IVP PRN (14:56)
[2017-12-21] MEDS ORDERED: Phenazopyridine HCl 97.5 MG TABLET ONE (15:08)
[2017-12-21] MEDS ORDERED: Promethazine HCl 25 MG/ML VIAL ONE (15:08)
[2017-12-21] MEDS ORDERED: Ketorolac Tromethamine 30 MG/ML VIAL ONE (15:25)
[2017-12-21] MEDS: HYDROcodone/Acetaminophen 10/325 mg Tablet PO PRN ×2 (17:21→21:24)
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
[2017-12-21] MEDS: Clindamycin/D5W 900 MG in Premix Bag 1 BAG IVPB SCH (21:24)
[2017-12-22] MEDS: HYDROcodone/Acetaminophen 10/325 mg Tablet PO PRN ×3 (01:36→21:56)
[2017-12-22] MEDS: Clindamycin/D5W 900 MG in Premix Bag 1 BAG IVPB SCH (04:53)
[2017-12-22 05:16] LABS: #Eosinphils 0.1 thou/uL (0.0-0.7); #Lymphocytes 1.4 thou/uL (1.20-3.40); %Basophils 0.3 % (0.0-1.0); %Eosinophils 0.9 % (0.0-10.0); %Lymphocytes 13.4 % (21.0-51.0); %Monocytes 9.6 % (0.0-10.0); %Neutrophils 75.9 % (42.0-75.0); Mean Corpuscular HGB CONC 33.9 g/dL (32.0-36.0); Mean Corpuscular Hemoglobin 30.3 pg (27.0-31.0); Mean Corpuscular Volume 89.2 fL (78.0-98.0); Mean Platelet Volume 6.2 fL (7.4-10.4); Platelet Count 272 thou/uL (130-400); Red Blood Cell (RBC) Count 3.96 mill/uL (4.70-6.10); White Blood Cell (WBC) Count 10.5 thou/uL (4.8-10.8)
[2017-12-22] MEDS: Gabapentin 300 MG CAP PO SCH ×3 (09:19→21:53)
[2017-12-22] MEDS: Enoxaparin Sodium 40 MG/0.4 ML SYRINGE SC SCH (09:19)
[2017-12-22] MEDS: traMADol HCl 50 MG TAB PO PRN (18:38)
[2017-12-22] MEDS ORDERED: Non-Formulary Item 1 EACH (Ranitidine Hcl [Ranitidine Hcl] 150 MG) PO SCH (21:00)
[2017-12-22] MEDS: Famotidine 20 MG TAB PO SCH (21:53)
[2017-12-23] MEDS: Gabapentin 300 MG CAP PO SCH ×3 (08:18→20:39)
[2017-12-23] MEDS: traMADol HCl 50 MG TAB PO PRN ×2 (08:18→18:50)
[2017-12-23] MEDS: Enoxaparin Sodium 40 MG/0.4 ML SYRINGE SC SCH (08:20)
[2017-12-23] MEDS: HYDROcodone/Acetaminophen 10/325 mg Tablet PO PRN ×3 (10:21→20:43)
[2017-12-23] MEDS: Famotidine 20 MG TAB PO SCH (20:39)
[2017-12-24] MEDS: HYDROcodone/Acetaminophen 10/325 mg Tablet PO PRN ×3 (02:22→21:59)
[2017-12-24] MEDS: Enoxaparin Sodium 40 MG/0.4 ML SYRINGE SC SCH (08:48)
[2017-12-24] MEDS: Gabapentin 300 MG CAP PO SCH ×3 (08:48→20:01)
[2017-12-24] MEDS: traMADol HCl 50 MG TAB PO PRN ×2 (08:51→20:03)
[2017-12-24] MEDS: Famotidine 20 MG TAB PO SCH (20:00)
[2017-12-24] MEDS: Senokot S 8.6-50 MG TAB PO SCH (21:58)
[2017-12-25] MEDS: HYDROcodone/Acetaminophen 10/325 mg Tablet PO PRN ×3 (02:18→10:59)
[2017-12-25] MEDS: Enoxaparin Sodium 40 MG/0.4 ML SYRINGE SC SCH (08:38)
[2017-12-25] MEDS: Gabapentin 300 MG CAP PO SCH (08:38)
[2017-12-25] MEDS: Senokot S 8.6-50 MG TAB PO SCH (08:38)
[2017-12-25 08:43] VITALS: BP 118/75; TEMP 97.9
[2017-12-25] MEDS: traMADol HCl 50 MG TAB PO PRN (09:23)
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
== END 2017-12-25 11:37 | disposition home or self-care (01) | DRG 482 ==
LOC: SURG A 09:32
PROVIDERS: ADMIT Orthopaedic Surgery; ATTEND Orthopaedic Surgery
PROC: 0QR Lower Bones, Replacement (ICD-10-PCS; principal; 2017-12-21)
PROC: 0QB60ZZ Excision of Right Upper Femur, Open Approach (ICD-10-PCS; 2017-12-21)
PROC: 0J9L0ZZ Drainage of Right Upper Leg Subcutaneous Tissue and Fascia, Open Approach (ICD-10-PCS; 2017-12-21)
DX: S72.92 Unspecified fracture of left femur (principal); S70.11XA Contusion of right thigh, initial encounter; F17.210 Nicotine dependence, cigarettes, uncomplicated; W31.89XD Contact with other specified machinery, subsequent encounter
CPT/HCPCS: 36415; 76001; 85025; C1713; C1769; G8978-GP-CN; G8979-GP-CK; J1170; J1650; J1885; J1956; J2001; J2250; J2270; J2405; J2550; J2704; J3010; J3490; S0028

== ENCOUNTER 2018-01-20 10:00 | Inpatient (IN) | payer OTHER ==
[2018-01-20] MEDS ORDERED: Fentanyl 100 MCG/2 ML VIAL ONE ×3 (10:26→13:06)
[2018-01-20] MEDS ORDERED: Midazolam HCl 2 mg/2 ml Vial ONE (10:26)
[2018-01-20] MEDS ORDERED: Neomycin-Polymyxin 1 ML AMP ONE (10:28)
[2018-01-20 11:27] LABS: #Eosinphils 0.4 thou/uL (0.0-0.7); #Lymphocytes 1.8 thou/uL (1.20-3.40); #Monocytes 0.7 thou/uL (0.11-0.59); %Basophils 0.4 % (0.0-1.0); %Eosinophils 4.9 % (0.0-10.0); %Lymphocytes 22.8 % (21.0-51.0); %Neutrophils 62.9 % (42.0-75.0); Hemoglobin 11.2 g/dL (14.0-18.0); Mean Corpuscular HGB CONC 33.3 g/dL (32.0-36.0); Mean Corpuscular Hemoglobin 28.4 pg (27.0-31.0); Mean Corpuscular Volume 85.4 fL (78.0-98.0); Platelet Count 402 thou/uL (130-400); Red Blood Cell (RBC) Count 3.95 mill/uL (4.70-6.10)
[2018-01-20] MEDS ORDERED: CEFAZOLIN/Water 2 GM/20 ML SYRINGE ONE (11:30)
[2018-01-20] MEDS ORDERED: traMADol HCl 50 MG TAB PO PRN (11:59)
[2018-01-20] MEDS ORDERED: TETANUS AND DIPHTHERIA TOX/PF 0.5 ML DISP.SYRIN IM SCH (12:00)
[2018-01-20] MEDS ORDERED: Communication Order-Pharmacy FS SCH (12:00)
[2018-01-20] MEDS ORDERED: Promethazine HCl 25 MG/ML VIAL IM PRN (12:35)
[2018-01-20] MEDS ORDERED: Ondansetron HCl/PF 4 MG/2 ML Vial IVP PRN (12:35)
[2018-01-20] MEDS ORDERED: HYDROmorphone 2 MG/ML VIAL SLOW IVP PRN (12:35)
[2018-01-20] MEDS ORDERED: Promethazine HCl 25 MG/ML VIAL SLOW IVP PRN (12:35)
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
[2018-01-20 14:35] VITALS: BMI 36.5
[2018-01-20] MEDS ORDERED: Lidocaine 1% PF 5 ML VIAL ONE (14:47)
[2018-01-20] MEDS ORDERED: PROPOFOL 200 MG/20 ML VIAL ONE (14:47)
[2018-01-20] MEDS ORDERED: Ondansetron HCl/PF 4 MG/2 ML Vial ONE (14:47)
[2018-01-20] MEDS: Gabapentin 300 MG CAP PO SCH ×2 (15:40→21:41)
[2018-01-20] MEDS: traMADol HCl 50 MG TAB PO PRN ×2 (15:42→21:46)
[2018-01-20] MEDS: HYDROcodone/Acetaminophen 10/325 mg Tablet PO PRN ×2 (15:42→21:47)
[2018-01-20] MEDS: CEFAZOLIN/Water 2 GM/20 ML SYRINGE SLOW IVP SCH (21:41)
[2018-01-20] MEDS: Aspirin 81 mg Enteric Coated Tablet PO SCH (21:41)
[2018-01-21] MEDS: CEFAZOLIN/Water 2 GM/20 ML SYRINGE SLOW IVP SCH ×2 (04:49→12:00)
[2018-01-21] MEDS: HYDROcodone/Acetaminophen 10/325 mg Tablet PO PRN (04:50)
[2018-01-21] MEDS: Gabapentin 300 MG CAP PO SCH ×2 (09:32→15:27)
[2018-01-21] MEDS: Aspirin 81 mg Enteric Coated Tablet PO SCH (09:32)
[2018-01-21 12:53] VITALS: TEMP 97.9
[2018-01-21 14:19] VITALS: BP 102/63
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
== END 2018-01-21 14:22 | disposition home or self-care (01) | DRG 858 ==
LOC: SJJU 10:00
PROVIDERS: ADMIT Orthopaedic Surgery; ATTEND Orthopaedic Surgery
PROC: 0JBM0ZZ Excision of Left Upper Leg Subcutaneous Tissue and Fascia, Open Approach (ICD-10-PCS; principal; 2018-01-20)
DX: T81.4XXA Infection following a procedure, initial encounter (principal); M79.89 Other specified soft tissue disorders; S72.352 Displaced comminuted fracture of shaft of left femur
CPT/HCPCS: 85025; 85652; 86140; 87070; 87077; 87186; 87205; J2001; J2250; J2405; J2704; J3010

== ENCOUNTER 2018-05-20 02:30 | Inpatient (IN) | payer OTHER ==
[2018-05-20] MEDS: Morphine 4 MG/ML VIAL SLOW IVP PRN ×8 (05:51→22:14)
[2018-05-20 07:42] VITALS: BMI 39.1
[2018-05-20] MEDS ORDERED: Ondansetron PF 4 MG/2 ML Vial IVP PRN (08:10)
[2018-05-20] MEDS ORDERED: Heparin 1,000 UNITS/ML VIAL ONE (09:00)
--- NOTE | 2018-05-20 11:53 | HP ---
CHIEF COMPLAINT: Left leg pain. HISTORY OF PRESENT ILLNESS: Mr. Espinoza is a 37-year-old male, who has a history of open left femur fracture related to crush injury. He has had multiple surgeries including bone grafting of his open segmental femur fracture with bone loss. He has an intramedullary nail in place. He had large open wounds in the past, however, these have largely healed except for a small very superficial 1 cm area over the anterior thigh. He has been doing well. I saw him in the clinic approximately 1 month ago, he was ambulating and improving. Unfortunately, last night he began having increased pain of the left leg as well as the groin. He began having difficulty walking. He also had a fever. He presented to a local emergency department and was transferred for further care of cellulitis. He has been admitted to the hospital at [facility]. He is currently comfortable at rest, but he has received morphine. PAST MEDICAL HISTORY: Negative. PAST SURGICAL HISTORY: Previous abdominal surgery as an , also multiple left femur and thigh surgeries in the recent past. PSYCHIATRIC HISTORY: Negative. SOCIAL HISTORY: The patient drinks alcohol. He denies tobacco use. He is on chronic narcotics related to his recent injury. ALLERGIES: TO PENICILLINS. CURRENT MEDICATIONS: Include; 1. Hydrocodone. 2. Tramadol. REVIEW OF SYSTEMS: Positive for left leg pain, minimal at rest. Otherwise, negative 10-point review of systems. IMAGING DATA: CT scan from outside hospital is reviewed. This demonstrates periosteal calcification and bone grafting of his femur fracture with no loosening or fracture of the hardware. There is progression of healing, although there are some nonunited fragments. There is no obvious evidence of abscess or osteomyelitis. PHYSICAL EXAMINATION: VITAL SIGNS: Temperature is 100.3, pulse is 95, respiratory rate 18, oxygen saturation 98%, and blood pressure is 119/77. GENERAL: The patient is lying supine, no apparent distress. RESPIRATORY: Breathing comfortably. ABDOMEN: Soft, nontender, nondistended. MUSCULOSKELETAL: The patient's left lower extremity has cellulitis with erythema and increased warmth over the thigh and anterior knee. There is more faint cellulitis over the right knee as well. He has tenderness to palpation. He has pain with knee motion and palpation of the skin. He is able to flex and extend his ankle and his hip, although the hip does cause some discomfort as well. He is neurovascularly intact distally. There is no purulent drainage. No dehiscence of wounds. IMPRESSION: History of open left segmental femur fracture, status post bone grafting and intramedullary nail, now with cellulitis. PLAN: At this point, the patient will be continued on intravenous antibiotics. He will be on Levaquin and vancomycin. He received antibiotics at the outside hospital last night. He will continue weightbear as tolerated. He will have adequate pain control. He can eat. I have no plans for surgical intervention at this point, however, we will follow him closely. Hopefully, he improves, although he may be here for several days for intravenous antibiotic treatment. This does not appear to be a deep infection. He has no evidence of abscess on CT scan and no wound dehiscence. Job ID: [id number]
[2018-05-20] MEDS: Acetaminophen 325 MG TAB PO PRN ×2 (12:34→19:52)
[2018-05-20] MEDS ORDERED: Sodium Chloride 0.9% 1,000 ML IV SCH ×2 (13:45→14:00)
[2018-05-20] MEDS: Clindamycin/D5W 900 MG in Premix Bag 1 BAG IVPB SCH ×2 (13:49→22:15)
[2018-05-20] MEDS ORDERED: Vancomycin HCl 1 GM in Premix Bag 1 BAG IVPB SCH (14:00)
[2018-05-20 14:14] LABS: Lactic Acid 1.6 mmol/L (0.5-2.2)
[2018-05-20 14:18] LABS: ALT (SGPT) 23 U/L (8-55); AST (SGOT) 17 U/L (5-34); Albumin 3.3 g/dL (3.5-5.0); Alkaline Phosphatase 68 U/L (40-150); Anion Gap 11 mmol/L (10-20); BUN (Urea Nitrogen) 15 mg/dL (8.9-20.6); Bilirubin, Total 1.6 mg/dL (0.2-1.2); CRP (Inflammatory) 22.58 mg/dL (= or < 0.5); Calc. Creatinine Clearance 158 mL/min (70-130); Calcium 8.7 mg/dL (7.8-10.44); Carbon Dioxide 26 mmol/L (22-29); Chloride 100 mmol/L (98-107); Estimated GFR-MDRD 80; Globulin 3.6 g/dL (2.4-3.5); Glucose 91 mg/dL (70-105); Magnesium 2.2 mg/dL (1.6-2.6); Potassium 4.2 mmol/L (3.5-5.1); Protein, Total 6.9 g/dL (6.0-8.3); Sodium 133 mmol/L (136-145)
[2018-05-20 14:41] LABS: Band 31 % (5-11); Hemoglobin 13.7 g/dL (14.0-18.0); Lymphocytes 1 % (21-51); MDiff Complete? YES; Mean Corpuscular HGB CONC 33.4 g/dL (32.0-36.0); Mean Corpuscular Hemoglobin 29.3 pg (27.0-31.0); Mean Corpuscular Volume 87.7 fL (78.0-98.0); Mean Platelet Volume 7.4 fL (7.4-10.4); Metamyelocyte 1 % (0-0); Monocytes 3 % (0-10); Neutrophil 64 % (42-75); Platelet Count 237 thou/uL (130-400); Platelet Morphology Comment Appears Adequate; RBC Distribution Width 13.9 % (11.5-14.5); Red Blood Cell (RBC) Count 4.67 mill/uL (4.70-6.10); White Blood Cell (WBC) Count 19.7 thou/uL (4.8-10.8)
--- NOTE | 2018-05-20 16:02 | CT ---
CT ABDOMEN AND PELVIS WITHOUT CONTRAST: 05/20/18 HISTORY: Left flank pain radiating to the groin. Patient had a CT scan for lower extremity cellulitis with IV contrast yesterday in [place]. FINDINGS: Absence of oral and IV contrast reduces the sensitivity of the exam for evaluation of solid organs an d bowel. Comparison made with scan of 09/12/17. There are mild dependent changes in the lung bases. No free air or free fluid is seen in the abdomen or pelvis. There is vicarious excretion of contrast in the gall bladder. There is residual contrast in the urinary bladder. Horseshoe kidney is present. No calculi i s seen in the kidneys or ureters. Small urinary bladder calculi is obscured by presence of contrast i n the dependent portions of the urinary bladder. No hydroureteronephrosis is seen on either side. No free air or free fluid is seen in the abdomen or pelvis. There is sigmoid diverticulosis without e vidence of diverticulitis. There are postop changes and metallic hardware in the left proximal femur. IMPRESSION: 1. Horseshoe kidney. No CT evidence of obstructing urinary tract calculi. 2. Sigmoid diverticulosis. POS: [facility]
[2018-05-20] MEDS ORDERED: Bisacodyl 10 MG SUPP PR PRN (16:27)
[2018-05-20 17:50] LABS: Bilirubin Negative (Negative); Blood, Urine Negative (Negative); Clarity CLOUDY (Clear); Glucose, Urine (Dipstick) Negative (Negative); Leukocyte Negative (Negative); Nitrite Negative (Negative); Protein, Urine (Dipstick) 30 mg/dL (Neg-Trace); Specific Gravity, Urine 1.029 (1.002-1.036); Urobilinogen 0.2 mg/dL (0.2-1.0)
[2018-05-20 17:52] LABS: Bacteria/HPF None Seen HPF (None Seen); Hyaline Casts/LPF 4-6 HYALINE CAST LPF (0-3 Hyaline); Pathc Cast-AUWi Flag 0.14 (0-2.49); Squamous Epithelial 0-3 HPF (0-3); WBC/HPF 0-3 HPF (0-3)
--- NOTE | 2018-05-20 18:42 | CON ---
DATE OF CONSULTATION: 05/20/2018 REASON FOR CONSULTATION: Medical management. SUBJECTIVE: The patient is a 37-year-old male, who is currently admitted under Orthopedic Service. He is currently being treated for left lower extremity cellulitis. The patient had left lower extremity cellulitis. Elma willis was called around 2 p.m. due to blood pressure of 85/48 and temperature of 102.1. His O2 saturation was 93%. His blood pressure recheck was still 86/48. He received normal saline bolus. Hospitalist Team was consulted for medical management. At this time, the patient denies any new complaints except for left flank pain. He denies any nausea, vomiting, diarrhea, palpitations, altered mentation, neck stiffness, skin rash, recent travel, cough, shortness of breath, or wheezing. PHYSICAL EXAMINATION: VITAL SIGNS: During the Elma Willis, temperature was 102.1 with pulse rate of 108, respiration 14, blood pressure 85/48, O2 saturation 93% on room air. His blood pressure has improved to 136/81 at this time after IV fluids. The temperature is down to 99. GENERAL: A 37-year-old male, in mild distress due to left flank pain. NECK: Supple. No JVD. No neck stiffness. LUNGS: Clear to auscultation bilaterally. No wheezing, rales, or rhonchi. No accessory muscle use. HEART: S1 and S2 present, tachycardic. No heaves, pulsation or significant murmurs. ABDOMEN: Soft, nontender. Bowel sounds present. NEUROLOGIC: Grossly nonfocal. Moves all four extremities. EXTREMITIES: No tenderness or swelling in the right lower extremity. There is some erythema with increased warmth over the left thigh as well as anterior knee. There was no purulent drainage noted. REVIEW OF SYSTEMS: As discussed above. LABORATORY DATA: Lab findings; WBC 19.7 with hemoglobin 13.7, platelet count 237 with 31% bandemia. Chemistry showed sodium 133, potassium 4.2, chloride 100, bicarb 26, BUN 15, and creatinine 1.05. Total bilirubin 1.6. CRP 22.5. Lactic acid 1.6. CT scan of the abdomen and pelvis, renal stone protocol by my review was negative for obstructive uropathy. He has horseshoe kidney with sigmoid diverticulosis. IMPRESSION: 1. Sepsis with acute organ dysfunction, probably secondary to left lower extremity cellulitis. Urinalysis was negative. CT stone protocol was negative. The patient is currently on vancomycin, clindamycin as well as Levaquin, which will be continued. Blood cultures were done today. We will monitor vancomycin levels. We will recheck labs in a.m., vital signs every 4 hourly. Continue IV fluids. 2. Left flank pain of unclear etiology. 3. Horseshoe kidney. 4. Obesity with a BMI of 39.2. 5. Abnormal LFTs, probably secondary to sepsis. 6. Hyponatremia. 7. Mild chronic anemia. 8. Elevated inflammatory markers. 9. Diverticulosis. 10. Penicillin allergy. Thank you, Dr. Betancourt, for this consultation. We will follow with you. Job ID: [id number]
[2018-05-20] MEDS: Sodium Chloride 0.9% 1,000 ML IV SCH ×2 (19:34→20:42)
[2018-05-20] MEDS: Senokot S 8.6-50 MG TAB PO SCH (20:41)
[2018-05-20] MEDS ORDERED: Polyethylene Glycol 3350 17 GM Packet PO SCH (21:00)
[2018-05-21] MEDS: Morphine 4 MG/ML VIAL SLOW IVP PRN ×7 (04:13→21:03)
[2018-05-21] MEDS: Sodium Chloride 0.9% 1,000 ML IV SCH ×4 (05:19→19:30)
[2018-05-21] MEDS: Clindamycin/D5W 900 MG in Premix Bag 1 BAG IVPB SCH ×3 (05:19→21:04)
[2018-05-21] MEDS: Acetaminophen 325 MG TAB PO PRN ×3 (05:24→13:47)
[2018-05-21 06:27] LABS: #Lymphocytes 0.6 thou/uL (1.20-3.40); #Monocytes 0.8 thou/uL (0.11-0.59); #Neutrophils 10.8 thou/uL (1.40-6.50); %Basophils 0.3 % (0.0-1.0); %Eosinophils 0.4 % (0.0-10.0); %Lymphocytes 4.5 % (21.0-51.0); %Monocytes 6.5 % (0.0-10.0); %Neutrophils 88.4 % (42.0-75.0); Hemoglobin 12.9 g/dL (14.0-18.0); Mean Corpuscular HGB CONC 33.8 g/dL (32.0-36.0); Mean Corpuscular Hemoglobin 30.1 pg (27.0-31.0); Mean Corpuscular Volume 89.2 fL (78.0-98.0); Platelet Count 188 thou/uL (130-400); RBC Distribution Width 13.8 % (11.5-14.5); Red Blood Cell (RBC) Count 4.29 mill/uL (4.70-6.10); White Blood Cell (WBC) Count 12.2 thou/uL (4.8-10.8)
[2018-05-21 06:46] LABS: Anion Gap 12 mmol/L (10-20); BUN (Urea Nitrogen) 10 mg/dL (8.9-20.6); Calc. Creatinine Clearance 199 mL/min (70-130); Calcium 8.6 mg/dL (7.8-10.44); Carbon Dioxide 22 mmol/L (22-29); Chloride 105 mmol/L (98-107); Estimated GFR-MDRD Greater than 90; Glucose 102 mg/dL (70-105); Sodium 135 mmol/L (136-145)
[2018-05-21] MEDS: Saccharomyces boulardii 250 MG CAP PO SCH (07:57)
[2018-05-21] MEDS: Senokot S 8.6-50 MG TAB PO SCH ×2 (08:04→19:29)
[2018-05-21] MEDS: Polyethylene Glycol 3350 17 GM Packet PO SCH (08:04)
[2018-05-21 14:42] LABS: Vancomycin, Trough 31.7 ug/mL
[2018-05-21] MEDS: HYDROcodone/Acetaminophen 10/325 mg Tablet PO PRN (19:28)
--- NOTE | 2018-05-21 21:11 | PDOC.PN ---
- Subjective Encounter Start Date: 05/21/18 Encounter Start Time: 10:00 Patient seen and examined for med mngt. Flank pain improving. No new complaints. No overnight events - Objective MAR Reviewed: Yes Vital Signs & Weight: Vital Signs (12 hours) Temp Pulse Resp BP Pulse Ox 05/21/18 19:32 104 H 120/73 05/21/18 15:03 99.3 F 104 H 20 95/60 97 05/21/18 11:49 99.2 F 93 20 103/63 98 Weight Weight 250 lb 0.067 oz I&O: 05/20/18 05/21/18 05/22/18 06:59 06:59 06:59 Intake Total 1905 Output Total 1600 900 Balance -1600 1005 Result Diagrams: 05/21/18 06:07 05/21/18 06:07 Radiology Reviewed by me: Yes (CT abd - no renal calculi) Phys Exam - Physical Examination Constitutional: NAD Respiratory: no wheezing, no rhonchi Cardiovascular: RRR, no rub Gastrointestinal: soft, non-tender, positive bowel sounds Musculoskeletal: no edema left thigh erythema improving Neurological: moves all 4 limbs Dx/Plan - Plan DVT proph w/SCDs 1. Sepsis with acute organ dysfunction, probably secondary to left lower extremity cellulitis. 2. Left flank pain of unclear etiology. improving 3. Horseshoe kidney. 4. Obesity with a BMI of 39.2. 5. Abnormal LFTs, probably secondary to sepsis. 6. Hyponatremia. 7. Mild chronic anemia. 8. Elevated inflammatory markers. 9. Diverticulosis. 10. Penicillin allergy. 11. Constipation PLAN: Cont Vancomycin/Levaquin and Clindamycin Monitor Vancomycin levels Await blood cultures Reduce IV fluids Treat constipation. Review of Systems - Review of Systems Respiratory: negative: Cough, Dry, Shortness of Breath, Hemoptysis, SOB with Excertion, Pleuritic Pain, Sputum, Wheezing Cardiovascular: negative: chest pain, palpitations, orthopnea, paroxysmal nocturnal dyspnea, edema, light headedness, other Gastrointestinal: Constipation. negative: Nausea, Vomiting, Abdominal Pain, Diarrhea, Melena, Hematochezia, Other - Medications/Allergies Allergies/Adverse Reactions: Allergies Allergy/AdvReac Type Severity Reaction Status Date / Time Penicillins Allergy Verified 12/20/17 12:38 Medications: Current Medications Acetaminophen (Tylenol) 650 mg PO Q6H PRN PRN Reason: Mild-Moderate Pain (1-5) Last Admin: 05/21/18 13:47 Dose: 650 mg Hydrocodone Bitart/Acetaminophen ([place] 10/325) 1 tab PO Q4H PRN PRN Reason: Severe Pain (7-10) Last Admin: 05/21/18 19:28 Dose: 1 tab Bisacodyl (Dulcolax) 10 mg [place] DAILYPRN PRN PRN Reason: Constipation Levofloxacin 500 mg/ Device 100 mls @ 100 mls/hr IVPB 0900 [facility] Stop: 05/24/18 09:01 Last Admin: 05/21/18 09:18 Dose: 100 mls Clindamycin Phosphate/Dextrose (900 mg/ Device) 50 mls @ 100 mls/hr IVPB Q8HR [facility] Last Admin: 05/21/18 21:04 Dose: 50 mls Sodium Chloride (Normal Saline 0.9%) 1,000 mls @ 125 mls/hr IV .Q8H [facility] Last Admin: 05/21/18 19:30 Dose: 1,000 mls Miscellaneous Medication (Pharmacy To Dose) 1 each IVPB PRN PRN PRN Reason: Pharmacy to dose Morphine Sulfate (Morphine) 4 mg SLOW IVP Q1H PRN PRN Reason: Pain Last Admin: 05/21/18 21:03 Dose: 4 mg Ondansetron HCl (Zofran) 4 mg IVP Q6H PRN PRN Reason: Nausea/Vomiting Polyethylene Glycol (Miralax) 17 gm PO DAILY [facility] Last Admin: 05/21/18 08:04 Dose: Not Given Saccharomyces Boulardii (Florastor) 250 mg PO DAILY [facility] Last Admin: 05/21/18 07:57 Dose: 250 mg Senna/Docusate Sodium (Senokot S) 2 tab PO BID [facility] Last Admin: 05/21/18 19:29 Dose: Not Given Tramadol HCl (Ultram) 100 mg PO Q6H PRN PRN Reason: Moderate to Severe Pain (6-10)
[2018-05-22] MEDS: Morphine 4 MG/ML VIAL SLOW IVP PRN ×8 (01:54→22:45)
[2018-05-22] MEDS: Acetaminophen 325 MG TAB PO PRN ×3 (01:54→18:24)
[2018-05-22] MEDS: Clindamycin/D5W 900 MG in Premix Bag 1 BAG IVPB SCH ×3 (06:33→21:38)
[2018-05-22 06:35] LABS: Vancomycin, Random 7.1 ug/mL (See Comment)
[2018-05-22] MEDS: Polyethylene Glycol 3350 17 GM Packet PO SCH (08:19)
[2018-05-22] MEDS: Sodium Chloride 0.9% 1,000 ML IV SCH ×2 (08:19→12:09)
[2018-05-22] MEDS: Saccharomyces boulardii 250 MG CAP PO SCH (08:19)
[2018-05-22] MEDS: Senokot S 8.6-50 MG TAB PO SCH ×2 (08:20→20:31)
[2018-05-22] MEDS ORDERED: Eucerin (Mineral Oil/Petrolatum,White) 30 gm Jar TOP PRN (18:05)
[2018-05-22] MEDS ORDERED: Mag-Al 1200 mg/1200 mg/30 ML UDCUP PO PRN (18:05)
[2018-05-22] MEDS ORDERED: Milk Of Magnesia 30 ML UDCUP PO PRN (18:05)
[2018-05-22] MEDS: Calcium Carbonate 500 MG ChewTAB PO PRN (18:24)
--- NOTE | 2018-05-22 20:58 | PDOC.PN ---
- Subjective Encounter Start Date: 05/22/18 Encounter Start Time: 11:15 Patient seen and examined for med mgnt. Feels better. No flank pain. No new complaints. No overnight events - Objective MAR Reviewed: Yes Vital Signs & Weight: Vital Signs (12 hours) Temp Pulse Resp BP Pulse Ox 05/22/18 20:00 98.8 F 86 12 124/83 100 05/22/18 15:30 99.2 F 85 20 108/71 97 05/22/18 12:40 99.4 F 88 16 119/80 96 Weight Weight 250 lb 0.067 oz I&O: 05/21/18 05/22/18 05/23/18 06:59 06:59 06:59 Intake Total 3060 2000 Output Total 1600 2050 2200 Balance -1600 1010 -200 Result Diagrams: 05/23/18 05:33 05/23/18 05:33 Phys Exam - Physical Examination Constitutional: NAD Respiratory: no wheezing, no rhonchi Cardiovascular: RRR, no rub Gastrointestinal: soft, non-tender, positive bowel sounds Musculoskeletal: no edema improving erythema in LLE Neurological: moves all 4 limbs Dx/Plan - Plan DVT proph w/SCDs 1. Sepsis with acute organ dysfunction, due to LLE cellulitis. 2. Left flank pain of unclear etiology. improved 3. Horseshoe kidney. 4. Obesity with a BMI of 39.2. 5. Abnormal LFTs, probably secondary to sepsis. 6. Hyponatremia. 7. Mild chronic anemia. 8. Elevated inflammatory markers. 9. Diverticulosis. 10. Penicillin allergy. 11. Constipation PLAN: Cont Vancomycin,Levaquin and Clindamycin Monitor Vancomycin levels Blood cultures negative Cont IV fluids AM labs Microbiology 05/20/18 Unknown Urine clean catch Urine Culture - Final NO GROWTH AT 48 HOURS 05/20/18 12:47 Venous blood - Right Hand Blood Culture - Preliminary NO GROWTH AT 48 HOURS 05/20/18 12:42 Venous blood - Right Arm Blood Culture - Preliminary NO GROWTH AT 48 HOURS Laboratory Tests 05/20/18 05/21/18 12:42 06:07 WBC 19.7 H 12.2 H Review of Systems - Review of Systems Respiratory: negative: Cough, Dry, Shortness of Breath, Hemoptysis, SOB with Excertion, Pleuritic Pain, Sputum, Wheezing Cardiovascular: negative: chest pain, palpitations, orthopnea, paroxysmal nocturnal dyspnea, edema, light headedness, other - Medications/Allergies Allergies/Adverse Reactions: Allergies Allergy/AdvReac Type Severity Reaction Status Date / Time Penicillins Allergy Verified 12/20/17 12:38 Medications: Current Medications Acetaminophen (Tylenol) 650 mg PO Q6H PRN PRN Reason: Mild-Moderate Pain (1-5) Last Admin: 05/22/18 18:24 Dose: 650 mg Hydrocodone Bitart/Acetaminophen ([place] 10/325) 1 tab PO Q4H PRN PRN Reason: Severe Pain (7-10) Last Admin: 05/21/18 19:28 Dose: 1 tab Al Hydroxide/Mg Hydroxide (Maalox) 30 ml PO Q6H PRN PRN Reason: Heartburn or Indigestion Bisacodyl (Dulcolax) 10 mg [place] DAILYPRN PRN PRN Reason: Constipation Calcium Carbonate (Tums) 1,000 mg PO Q4H PRN PRN Reason: Heartburn or Indigestion Last Admin: 05/22/18 18:24 Dose: 1,000 mg Levofloxacin 500 mg/ Device 100 mls @ 100 mls/hr IVPB 0900 [facility] Stop: 05/24/18 09:01 Last Admin: 05/22/18 08:19 Dose: 100 mls Clindamycin Phosphate/Dextrose (900 mg/ Device) 50 mls @ 100 mls/hr IVPB Q8HR [facility] Last Admin: 05/22/18 12:09 Dose: 50 mls Sodium Chloride (Normal Saline 0.9%) 1,000 mls @ 125 mls/hr IV .Q8H [facility] Last Admin: 05/22/18 12:09 Dose: 1,000 mls Vancomycin HCl 2 gm/ Sodium (Chloride) 500 mls @ 250 mls/hr IVPB 1000,2200 [facility] Last Admin: 05/22/18 09:59 Dose: 500 mls Magnesium Hydroxide (Milk Of Magnesium) 30 ml PO DAILYPRN PRN PRN Reason: Constipation Mineral Oil/White Petrolatum (Eucerin Cream) 0 gm TOP BIDPRN PRN PRN Reason: Dry Skin Miscellaneous Medication (Pharmacy To Dose) 1 each IVPB PRN PRN PRN Reason: Pharmacy to dose Morphine Sulfate (Morphine) 4 mg SLOW IVP Q1H PRN PRN Reason: Pain Last Admin: 05/22/18 19:45 Dose: 4 mg Ondansetron HCl (Zofran) 4 mg IVP Q6H PRN PRN Reason: Nausea/Vomiting Polyethylene Glycol (Miralax) 17 gm PO DAILY [facility] Last Admin: 05/22/18 08:19 Dose: Not Given Saccharomyces Boulardii (Florastor) 250 mg PO DAILY [facility] Last Admin: 05/22/18 08:19 Dose: 250 mg Senna/Docusate Sodium (Senokot S) 2 tab PO BID [facility] Last Admin: 05/22/18 20:31 Dose: Not Given Tramadol HCl (Ultram) 100 mg PO Q6H PRN PRN Reason: Moderate to Severe Pain (6-10)
[2018-05-23] MEDS: Acetaminophen 325 MG TAB PO PRN ×3 (00:28→18:34)
[2018-05-23] MEDS: Morphine 4 MG/ML VIAL SLOW IVP PRN ×8 (00:33→21:18)
[2018-05-23] MEDS: Sodium Chloride 0.9% 1,000 ML IV SCH ×3 (00:55→13:06)
[2018-05-23] MEDS: Clindamycin/D5W 900 MG in Premix Bag 1 BAG IVPB SCH ×3 (05:29→21:18)
[2018-05-23 05:51] LABS: #Basophils 0.1 thou/uL (0.0-0.2); #Eosinphils 0.4 thou/uL (0.0-0.7); #Lymphocytes 1.1 thou/uL (1.20-3.40); #Monocytes 0.6 thou/uL (0.11-0.59); #Neutrophils 5.2 thou/uL (1.40-6.50); %Basophils 0.7 % (0.0-1.0); %Eosinophils 5.7 % (0.0-10.0); %Lymphocytes 14.5 % (21.0-51.0); %Monocytes 7.9 % (0.0-10.0); %Neutrophils 71.2 % (42.0-75.0); Hemoglobin 14.5 g/dL (14.0-18.0); Mean Corpuscular Hemoglobin 30.2 pg (27.0-31.0); Mean Corpuscular Volume 88.7 fL (78.0-98.0); Mean Platelet Volume 7.1 fL (7.4-10.4); Platelet Count 248 thou/uL (130-400); RBC Distribution Width 13.5 % (11.5-14.5); Red Blood Cell (RBC) Count 4.79 mill/uL (4.70-6.10); White Blood Cell (WBC) Count 7.3 thou/uL (4.8-10.8)
[2018-05-23 06:18] LABS: ALT (SGPT) 20 U/L (8-55); AST (SGOT) 15 U/L (5-34); Albumin 3.2 g/dL (3.5-5.0); Alkaline Phosphatase 81 U/L (40-150); Anion Gap 13 mmol/L (10-20); BUN (Urea Nitrogen) 7 mg/dL (8.9-20.6); Bilirubin, Total 0.7 mg/dL (0.2-1.2); Calc. Creatinine Clearance 215 mL/min (70-130); Calcium 9.5 mg/dL (7.8-10.44); Carbon Dioxide 26 mmol/L (22-29); Chloride 105 mmol/L (98-107); Estimated GFR-MDRD Greater than 90; Globulin 4.1 g/dL (2.4-3.5); Glucose 102 mg/dL (70-105); Magnesium 2.1 mg/dL (1.6-2.6); Potassium 3.8 mmol/L (3.5-5.1); Protein, Total 7.3 g/dL (6.0-8.3); Sodium 140 mmol/L (136-145)
[2018-05-23] MEDS: Saccharomyces boulardii 250 MG CAP PO SCH (08:32)
[2018-05-23] MEDS: Senokot S 8.6-50 MG TAB PO SCH ×2 (08:33→21:13)
[2018-05-23] MEDS: Polyethylene Glycol 3350 17 GM Packet PO SCH (08:33)
--- NOTE | 2018-05-23 14:50 | PDOC.PN ---
- Subjective Encounter Start Date: 05/23/18 Encounter Start Time: 11:00 Patient seen and examined for med mngt. No new complaints. No overnight events - Objective MAR Reviewed: Yes Vital Signs & Weight: Vital Signs (12 hours) Temp Pulse Resp BP Pulse Ox 05/23/18 11:59 98.8 F 100 16 121/79 97 05/23/18 08:11 98.2 F 66 18 101/66 99 05/23/18 07:34 97 05/23/18 03:59 98.1 F 77 12 107/69 97 Weight Weight 250 lb 0.067 oz I&O: 05/22/18 05/23/18 05/24/18 06:59 06:59 06:59 Intake Total 3060 2000 600 Output Total 2050 2650 Balance 1010 -650 600 Result Diagrams: 05/23/18 05:33 05/23/18 05:33 Phys Exam - Physical Examination Constitutional: NAD Musculoskeletal: no edema improving erythema over the left thigh Neurological: non-focal, moves all 4 limbs Dx/Plan - Plan DVT proph w/SCDs 1. Sepsis with acute organ dysfunction, due to LLE cellulitis. 2. Left flank pain of unclear etiology. improved 3. Horseshoe kidney. 4. Obesity with a BMI of 39.2. 5. Abnormal LFTs, probably secondary to sepsis. 6. Hyponatremia. 7. Mild chronic anemia. 8. Elevated inflammatory markers. 9. Diverticulosis. 10. Penicillin allergy. 11. Constipation PLAN: Cont current Atbx Monitor Vancomycin levels Will follow PRN Review of Systems - Review of Systems Respiratory: negative: Cough, Dry, Shortness of Breath, Hemoptysis, SOB with Excertion, Pleuritic Pain, Sputum, Wheezing Cardiovascular: negative: chest pain, palpitations, orthopnea, paroxysmal nocturnal dyspnea, edema, light headedness, other - Medications/Allergies Allergies/Adverse Reactions: Allergies Allergy/AdvReac Type Severity Reaction Status Date / Time Penicillins Allergy Verified 12/20/17 12:38 Medications: Current Medications Acetaminophen (Tylenol) 650 mg PO Q6H PRN PRN Reason: Mild-Moderate Pain (1-5) Last Admin: 05/23/18 13:12 Dose: 650 mg Hydrocodone Bitart/Acetaminophen ([place] 10/325) 1 tab PO Q4H PRN PRN Reason: Severe Pain (7-10) Last Admin: 05/21/18 19:28 Dose: 1 tab Al Hydroxide/Mg Hydroxide (Maalox) 30 ml PO Q6H PRN PRN Reason: Heartburn or Indigestion Bisacodyl (Dulcolax) 10 mg [place] DAILYPRN PRN PRN Reason: Constipation Calcium Carbonate (Tums) 1,000 mg PO Q4H PRN PRN Reason: Heartburn or Indigestion Last Admin: 05/22/18 18:24 Dose: 1,000 mg Clindamycin Phosphate/Dextrose (900 mg/ Device) 50 mls @ 100 mls/hr IVPB Q8HR [facility] Last Admin: 05/23/18 13:06 Dose: 50 mls Sodium Chloride (Normal Saline 0.9%) 1,000 mls @ 125 mls/hr IV .Q8H [facility] Last Admin: 05/23/18 13:06 Dose: 1,000 mls Magnesium Hydroxide (Milk Of Magnesium) 30 ml PO DAILYPRN PRN PRN Reason: Constipation Mineral Oil/White Petrolatum (Eucerin Cream) 0 gm TOP BIDPRN PRN PRN Reason: Dry Skin Morphine Sulfate (Morphine) 4 mg SLOW IVP Q1H PRN PRN Reason: Pain Last Admin: 05/23/18 13:04 Dose: 4 mg Ondansetron HCl (Zofran) 4 mg IVP Q6H PRN PRN Reason: Nausea/Vomiting Polyethylene Glycol (Miralax) [address] [facility] Last Admin: 05/23/18 08:33 Dose: Not Given Saccharomyces Boulardii (Florastor) [address] [facility] Last Admin: 05/23/18 08:32 Dose: 250 mg Senna/Docusate Sodium (Senokot S) [address] [facility] Last Admin: 05/23/18 08:33 Dose: Not Given Tramadol HCl (Ultram) 100 mg PO Q6H PRN PRN Reason: Moderate to Severe Pain (6-10)
[2018-05-24] MEDS: Calcium Carbonate 500 MG ChewTAB PO PRN (00:03)
[2018-05-24] MEDS: Acetaminophen 325 MG TAB PO PRN ×3 (00:03→21:07)
[2018-05-24] MEDS: Morphine 4 MG/ML VIAL SLOW IVP PRN ×8 (00:03→23:06)
[2018-05-24] MEDS: Sodium Chloride 0.9% 1,000 ML IV SCH ×2 (00:31→09:32)
[2018-05-24] MEDS: Clindamycin/D5W 900 MG in Premix Bag 1 BAG IVPB SCH (05:01)
[2018-05-24] MEDS: Saccharomyces boulardii 250 MG CAP PO SCH (09:39)
[2018-05-24] MEDS: Polyethylene Glycol 3350 17 GM Packet PO SCH (09:39)
[2018-05-24] MEDS: Senokot S 8.6-50 MG TAB PO SCH ×2 (09:39→21:09)
[2018-05-24] MEDS ORDERED: CEFAZOLIN/Water 2 GM/20 ML SYRINGE SLOW IVP SCH (12:15)
[2018-05-24] MEDS: CEFAZOLIN 2 GM/50 ML-DEXTROSE 2 GM in Premix Bag 1 BAG IVPB SCH ×2 (13:49→21:09)
--- NOTE | 2018-05-24 14:57 | CT ---
CT LEFT LOWER EXTREMITY WITH CONTRAST: INDICATIONS: Prior fracture. Edema. Pain. Infection with erythema. FINDINGS: There is a partially visualized traversing intramedullary lenora of the left femur with two distal trave rsing metallic screws. This does traverse a site of comminuted fracture deformity of the distal diap hysis of the femur with persistent fracture displacement and prominent remnant fracture lucencies. T here is a significant volume of surrounding increased soft tissue density, which involves the subcuta neous tissues, as well as the left thigh musculature. Streak artifact from indwelling hardware is pr esent, which does limit assessment. There is diffuse soft tissue edema of the subcutaneous tissues o f the visualized aspects of the left leg (below the level of the knee). Posteriorly displaced fractu re fragment of the posterolateral distal left thigh is present. There is relative osseous deminerali zation about the imaged left lower extremity osseous structures. Lucencies from prior hardware place ment suggested within the left tibial diaphysis. IMPRESSION: 1. Prominent abnormal increased soft tissue density involving the left thigh musculature and the sub cutaneous tissues. Findings are nonspecific, although may relate to post traumatic hematoma, in ligh t of the patient's history of injury and erythema. Alternatively, findings could relate to a multifo richard inflammatory process related to infection. A well-formed drainable fluid collection is not prese nt. If there is need for percutaneous sampling, attempt at aspiration may be performed, if this woul d prove of clinical benefit. 2. Persistence of comminuted, unhealed fracture deformity of the postoperative distal left femur. A component of superimposed osteomyelitis cannot be excluded on the basis of this examination. POS: VERNON
[2018-05-24] MEDS ORDERED: ISOVUE-370 76%-LOCM 1 ML ONE (16:40)
--- NOTE | 2018-05-24 16:59 | CON ---
DATE OF CONSULTATION: 05/24/2018 REASON FOR CONSULTATION: Left lower extremity inflammatory process. HISTORY OF PRESENT ILLNESS: A 37-year-old, who had no prior medical problems until August of this year when he sustained an injury while working and had fractures of his left and right femurs with exposed type 3 fractures and on September 12, Dr. Betancourt did an irrigation and debridement of a left-sided grade 3 open femur fracture with external fixation. On September 14, he underwent removal of the external fixator from left femur with an intramedullary nail fixation of left femur, plus irrigation and debridement and then he returned to the hospital 3 months later on December 14. The wounds had healed, but he had nonunion of the left femur. Therefore, bone grafting was carried out from the right to the left. He also had a right thigh hematoma evacuation. On January 20, 2018, he came in with serous fluid drainage from the anterior aspect of his left thigh. He went back for I and D of the area. No evidence of gross purulence noted, but there was some superficial fat necrosis. This was removed and the base of the tissue appeared healthy otherwise, and now he comes back because of sudden onset of a leg pain in the left side, which has started about 3 to 4 days before admission. Until then, he actually had excellent function at that extremity and no pain whatsoever. So, this inflammatory process had a sudden development. It resulted in marked impairment of mobility with severe pain all the way down to the left leg with inability to flex the knee. This was associated with fever. Therefore, he has been admitted. On arrival; his temperature 100.3, pulse 95, respirations 18, O2 saturation 98%, and BP 119/77. Did not appear in distress. The left lower extremity had evidence of erythema and warmth in the thigh and anterior knee with tenderness to palpation. No limitation of range of motion of the knee. Thus far, in terms of imaging studies, we have had an abdomen and pelvis CT, which was not particularly remarkable. This was to evaluate left flank pain. Previous vascular ultrasound on November 14 with no evidence of deep vein thrombosis. There was a fluid collection in the superficial soft tissues of the medial distal thigh. Currently, he still has marked pain in the left lower extremity. No headaches, visual symptoms, sore throat, odynophagia, or dysphagia. No cough or sputum production. No chest pain. No dyspnea. No back pain. No abdominal pain or diarrhea. No genitourinary symptoms. Voiding without difficulty. No neurological symptoms. PAST MEDICAL HISTORY: Prior to this accident in August, he did not have any medical issues. ALLERGIES: HE HAS AN ALLERGY TO PENICILLIN. HE DOES NOT KNOW EXACTLY WHICH KIND OF ALLERGY. HE ALWAYS WAS TOLD SINCE CHILDHOOD THAT HE HAD IT. PAST SURGICAL HISTORY: Apparently had a laparotomy when he was a child to reduce intussusception. SOCIAL HISTORY: . 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 Drinks daily about one 6-pack of beer. FAMILY HISTORY: Noncontributory. CURRENT MEDICATIONS: Clindamycin IV. PHYSICAL EXAMINATION: VITAL SIGNS: T-max 100.8 a few days ago. Now, he has been afebrile. BP 120/80, pulse 70, respirations 16, and O2 saturation 98%. SKIN: Shows the area of erythema along the left lower extremity extending from the thigh all the way to the left leg, mostly in the anterior surface. There are scars, which have healed, but no drainage noted along the anterior aspect of the left thigh. There is a question of lymphadenopathy in the left groin. Peripheral IV access. No Pedraza catheter. No lymphadenopathy. HEENT: Ocular movements conjugate. Sclerae white. Oral cavity normal. NECK: Supple. LUNGS: Symmetric. Clear breath sounds. HEART: S1 and S2. Regular rate. No S3 or S4. ABDOMEN: Soft, not distended or tender. No ascites. No bladder distention. EXTREMITIES: Marked limitation range of motion of left lower extremity, particularly at the knee. I did not identify any evidence of knee effusion though. The other joints do not appear involved by any inflammatory process. Pulses are excellent in lower extremities. NEUROLOGIC: Cognitive function is intact. Neuro examination is nonfocal. He has limitation of range of motion/motility of left lower extremity from the inflammatory process. LABORATORY DATA: White cell count is 19,000, down to 7.3, hemoglobin 13 and now 14, platelets 248, and 31% bands on arrival. Chemistry with sodium 133, CRP 22, and bilirubin 1.6. Liver profile otherwise normal. Albumin 3.2. Urinalysis unremarkable except for 30 of protein. Previous microbiology, we have Staph aureus from December from thigh cultures, which was methicillin sensitive. Current blood cultures negative. Urine culture negative as well. ASSESSMENT: 1. Work injury with fractures in the femur, right and left side with a more complicated fracture on the left side, which required multiple procedures. 2. Methicillin-sensitive Staphylococcus aureus infection of the left fracture site in December, treated with incision and drainage. This seems to have been limited to the soft tissues or fat tissues. 3. Recrudescence of inflammatory process with neutrophilia and bandemia, which seems to be responding to antimicrobial therapy, but still persistent erythema and swelling and tenderness in the left lower extremity. DISCUSSION: Differential diagnoses includes more complicated infection extending to the fracture site secondary to a methicillin-sensitive Staph aureus. We will image the area probably with CT with contrast and switch him to cefazolin. He may have an abscess formation/collection in the muscle subcutaneous layers. This will be evaluated by the CT as well. Job ID: [id number]
[2018-05-25] MEDS: Morphine 4 MG/ML VIAL SLOW IVP PRN ×10 (03:58→23:13)
[2018-05-25] MEDS: Acetaminophen 325 MG TAB PO PRN ×3 (03:59→23:14)
[2018-05-25] MEDS: CEFAZOLIN 2 GM/50 ML-DEXTROSE 2 GM in Premix Bag 1 BAG IVPB SCH ×3 (05:16→21:08)
[2018-05-25] MEDS: Saccharomyces boulardii 250 MG CAP PO SCH (08:02)
[2018-05-25] MEDS: Polyethylene Glycol 3350 17 GM Packet PO SCH (08:06)
[2018-05-25] MEDS: Senokot S 8.6-50 MG TAB PO SCH ×2 (08:06→21:08)
--- NOTE | 2018-05-25 17:32 | PRG ---
DATE OF SERVICE: 05/25/2018 SUBJECTIVE: Feeling better, less pain. Still unable to bear weight. No respiratory symptoms or abdominal pain. No diarrhea. OBJECTIVE: VITAL SIGNS: Normal. SKIN: Shows marked improvement in inflammatory changes, left thigh and leg with less tenderness and less swelling. HEENT: Ocular movements conjugate. LUNGS: Clear. HEART: S1 and S2. Regular rate. ABDOMEN: Soft, not distended. LABORATORY DATA: White cell count 7.3, hemoglobin 14.5, platelets 248. Creatinine 0.77. Blood culture, no growth [address] with prominent increased soft tissue density, left thigh musculature, subcutaneous tissues and unhealed fracture, postop distal left femur. ASSESSMENT AND DISCUSSION: Previous work injury with fractures of both femurs. The right one has healed completely with no problems. The left one persists with recurring inflammatory processes, has suffered from nonunion complications and has required grafting and now presents with severe inflammatory process of acute onset. In view of the findings in CT, the possibility of bone infection needs to be considered, and I would recommend treating this empirically as if it was truly a chronic osteomyelitis of the site. Continue Ancef. PICC line placement. Treat until the end of June. He might require surgical intervention depending on the progress of the imaging findings. Job ID: [id number]
[2018-05-26] MEDS: Morphine 4 MG/ML VIAL SLOW IVP PRN ×10 (01:37→21:03)
[2018-05-26] MEDS: CEFAZOLIN 2 GM/50 ML-DEXTROSE 2 GM in Premix Bag 1 BAG IVPB SCH ×3 (05:33→21:05)
[2018-05-26] MEDS: Polyethylene Glycol 3350 17 GM Packet PO SCH (07:29)
[2018-05-26] MEDS: Senokot S 8.6-50 MG TAB PO SCH ×2 (07:29→21:06)
[2018-05-26] MEDS: Saccharomyces boulardii 250 MG CAP PO SCH (09:19)
[2018-05-26] MEDS: Acetaminophen 325 MG TAB PO PRN ×2 (09:19→21:08)
--- NOTE | 2018-05-26 14:38 | SPC ---
ULTRASOUND GUIDED LEFT UPPER EXTREMITY PICC LINE PLACEMENT: Date: 05-26-18 History: Left lower extremity infection. Patient needs long-term IV antibiotics. Technique: After informed consent was obtained, patient was placed on the angiography table in supine position. The left upper extremity was meticulously prepped and draped in the usual sterile fashion. An appropr iate access site was determined with ultrasound guidance. Skin and subcutaneous tissues were infiltrated with buffered 1% Lidocaine for local anesthesia. Utili zing concurrent real-time ultrasound guidance the left basilic vein was accessed utilizing micropunct ure technique and a 5 [place]cu[place]orean peel-away sheath was placed. The catheter was measured and cut to the appropriate length. The catheter was placed over the guidewi re with tip positioned overlying the cavoatrial junction. Guidewire and peel-away sheath were removed . The catheter was access and aspirated/flushed easily. The catheter was secured to the skin utilizing dry sterile dressing. Patient tolerated the procedure well and without immediate complication. FINDINGS: Technically successful placement of a single lumen 5 [place] 40 cm PICC line via the left basilic vein . The tip of the catheter overlies the cavoatrial junction. Fluoroscopy: Total time is 0 minutes with total dose of 735 mGy*cm^2. IMPRESSION: Technically successful left upper extremity PICC line placement. POS: STEPAN
[2018-05-27] MEDS: Morphine 4 MG/ML VIAL SLOW IVP PRN ×2 (00:49→04:24)
[2018-05-27] MEDS: Acetaminophen 325 MG TAB PO PRN (04:24)
[2018-05-27] MEDS: Calcium Carbonate 500 MG ChewTAB PO PRN ×2 (04:31→23:07)
[2018-05-27] MEDS: CEFAZOLIN 2 GM/50 ML-DEXTROSE 2 GM in Premix Bag 1 BAG IVPB SCH ×3 (06:19→21:31)
[2018-05-27] MEDS: Polyethylene Glycol 3350 17 GM Packet PO SCH (09:28)
[2018-05-27] MEDS: Senokot S 8.6-50 MG TAB PO SCH ×2 (09:28→19:58)
[2018-05-27] MEDS: HYDROcodone/Acetaminophen 10/325 mg Tablet PO PRN ×3 (09:30→19:57)
[2018-05-27] MEDS: Saccharomyces boulardii 250 MG CAP PO SCH (09:30)
[2018-05-27] MEDS: Ibuprofen 800 MG TAB PO PRN ×2 (10:41→21:29)
[2018-05-27] MEDS: traMADol HCl 50 MG TAB PO PRN ×3 (10:41→21:48)
[2018-05-28] MEDS: HYDROcodone/Acetaminophen 10/325 mg Tablet PO PRN ×3 (00:13→19:58)
[2018-05-28] MEDS: Ibuprofen 800 MG TAB PO PRN ×3 (05:23→21:11)
[2018-05-28] MEDS: CEFAZOLIN 2 GM/50 ML-DEXTROSE 2 GM in Premix Bag 1 BAG IVPB SCH ×3 (05:24→21:11)
[2018-05-28] MEDS: traMADol HCl 50 MG TAB PO PRN ×3 (05:24→21:11)
[2018-05-28] MEDS: Saccharomyces boulardii 250 MG CAP PO SCH (08:40)
[2018-05-28] MEDS: Polyethylene Glycol 3350 17 GM Packet PO SCH (08:40)
[2018-05-28] MEDS: Senokot S 8.6-50 MG TAB PO SCH ×2 (08:40→20:37)
--- NOTE | 2018-05-28 16:27 | PRG ---
DATE OF SERVICE: 05/28/2018 SUBJECTIVE: He is able to stand up, but still with too much pain to allow him to bear weight in the left lower extremity. Pain is centered around the left knee area. No respiratory symptoms or abdominal pain. Urinating without problems. OBJECTIVE: VITAL SIGNS: Normal. Has been afebrile for a while now. GENERAL: Awake, alert, and oriented. LUNGS: Clear. HEART: S1 and S2. Regular rate. ABDOMEN: Soft. EXTREMITIES: Left leg with marked improvement, less swelling, less erythema. LABORATORY DATA: White cell count down to 7.3, hemoglobin 14.5, platelets 248. Chemistry not remarkable except for albumin 3.2. IMAGING STUDIES: The lower extremity CT was reviewed again and there is a partially visualized intramedullary lenora, left femur, two distal traversing metallic screws with significant volume as well as an increased soft tissue density to involve subcutaneous tissues in the thigh. Artifact hinders assessment. Posteriorly displaced fracture fragment of the posterolateral distal left thigh is present. ASSESSMENT AND DISCUSSION: Prior fracture, comminuted, unhealed fracture deformity distal left femur, possible superimposed osteomyelitis and soft tissue phlegmon secondary to methicillin-sensitive Staphylococcus aureus, currently on cefazolin to be continued for protracted period of time. Discharge planning once his functional status improves a little bit more. Job ID: [id number]
[2018-05-29] MEDS: HYDROcodone/Acetaminophen 10/325 mg Tablet PO PRN ×3 (00:15→18:32)
[2018-05-29] MEDS: Calcium Carbonate 500 MG ChewTAB PO PRN (02:29)
[2018-05-29] MEDS: CEFAZOLIN 2 GM/50 ML-DEXTROSE 2 GM in Premix Bag 1 BAG IVPB SCH ×3 (05:12→21:32)
[2018-05-29] MEDS: traMADol HCl 50 MG TAB PO PRN ×3 (05:12→21:33)
[2018-05-29] MEDS: Ibuprofen 800 MG TAB PO PRN ×3 (05:13→21:33)
[2018-05-29] MEDS: Senokot S 8.6-50 MG TAB PO SCH ×2 (09:02→21:42)
[2018-05-29] MEDS: Polyethylene Glycol 3350 17 GM Packet PO SCH (09:02)
[2018-05-29] MEDS: Saccharomyces boulardii 250 MG CAP PO SCH (09:03)
[2018-05-30] MEDS: HYDROcodone/Acetaminophen 10/325 mg Tablet PO PRN ×4 (01:03→23:51)
[2018-05-30] MEDS: traMADol HCl 50 MG TAB PO PRN ×3 (05:09→22:20)
[2018-05-30] MEDS: Ibuprofen 800 MG TAB PO PRN ×3 (05:09→22:20)
[2018-05-30] MEDS: Calcium Carbonate 500 MG ChewTAB PO PRN ×2 (05:11→23:49)
[2018-05-30] MEDS: CEFAZOLIN 2 GM/50 ML-DEXTROSE 2 GM in Premix Bag 1 BAG IVPB SCH ×3 (05:14→22:21)
[2018-05-30] MEDS: Saccharomyces boulardii 250 MG CAP PO SCH (08:42)
[2018-05-30] MEDS: Senokot S 8.6-50 MG TAB PO SCH ×2 (08:46→21:58)
[2018-05-30] MEDS: Polyethylene Glycol 3350 17 GM Packet PO SCH (08:46)
[2018-05-30] MEDS ORDERED: traMADol HCl 50 MG TAB PO PRN (08:51)
[2018-05-31] MEDS: CEFAZOLIN 2 GM/50 ML-DEXTROSE 2 GM in Premix Bag 1 BAG IVPB SCH ×3 (05:23→21:07)
[2018-05-31] MEDS: Ibuprofen 800 MG TAB PO PRN ×2 (07:04→23:35)
[2018-05-31] MEDS: traMADol HCl 50 MG TAB PO PRN ×2 (07:04→23:35)
[2018-05-31] MEDS: Saccharomyces boulardii 250 MG CAP PO SCH (08:41)
[2018-05-31] MEDS: Senokot S 8.6-50 MG TAB PO SCH ×2 (08:44→21:08)
[2018-05-31] MEDS: Polyethylene Glycol 3350 17 GM Packet PO SCH (08:44)
[2018-05-31] MEDS: HYDROcodone/Acetaminophen 10/325 mg Tablet PO PRN ×2 (13:24→21:08)
[2018-06-01] MEDS: HYDROcodone/Acetaminophen 10/325 mg Tablet PO PRN ×4 (05:06→20:29)
[2018-06-01] MEDS: CEFAZOLIN 2 GM/50 ML-DEXTROSE 2 GM in Premix Bag 1 BAG IVPB SCH ×3 (05:06→21:29)
[2018-06-01] MEDS: Saccharomyces boulardii 250 MG CAP PO SCH (08:02)
[2018-06-01] MEDS: Polyethylene Glycol 3350 17 GM Packet PO SCH (08:03)
[2018-06-01] MEDS: Senokot S 8.6-50 MG TAB PO SCH ×2 (08:03→20:32)
[2018-06-01] MEDS: Ibuprofen 800 MG TAB PO PRN (23:14)
[2018-06-01] MEDS: traMADol HCl 50 MG TAB PO PRN (23:14)
[2018-06-02] MEDS: CEFAZOLIN 2 GM/50 ML-DEXTROSE 2 GM in Premix Bag 1 BAG IVPB SCH ×2 (05:44→13:05)
[2018-06-02] MEDS: HYDROcodone/Acetaminophen 10/325 mg Tablet PO PRN ×2 (05:48→11:23)
[2018-06-02] MEDS: traMADol HCl 50 MG TAB PO PRN ×2 (08:59→13:06)
[2018-06-02] MEDS: Saccharomyces boulardii 250 MG CAP PO SCH (08:59)
[2018-06-02] MEDS: Ibuprofen 800 MG TAB PO PRN (09:02)
[2018-06-02] MEDS: Polyethylene Glycol 3350 17 GM Packet PO SCH (09:12)
[2018-06-02] MEDS: Senokot S 8.6-50 MG TAB PO SCH (09:13)
[2018-06-02 11:27] VITALS: BP 124/76; TEMP 98
--- NOTE | 2018-06-05 10:01 | DIS ---
DATE OF ADMISSION: 05/20/2018 DATE OF DISCHARGE: 06/02/2018 ATTENDING PHYSICIAN: Reg Betancourt MD. CONSULTANTS: Medical Group and Valente Murphy MD. REASON FOR ADMISSION: Left lower extremity cellulitis and leg pain. HISTORY OF PRESENT ILLNESS: Mr. Espinoza is a 37-year-old male, who has a history of open left femur fracture related to a crush injury. He has had multiple surgeries including bone grafting of his open segmental femur fracture with bone loss. He has an intramedullary nail in place. He had large open wounds in the past, however, these have largely healed except for a small superficial 1 cm area over the anterior thigh. He is doing well with this. He was seen in the clinic approximately one month prior to this hospital admission. He was ambulating, improving. Unfortunately, he began having increased pain over the left leg as well as in the groin. He began having difficulty walking as well as fever. He was admitted for treatment of cellulitis. During his hospital admission, the patient received IV antibiotics. The patient received a PICC line. He also worked with Physical and Occupational therapy. He was seen by some medical group for medical management. He was then discharged home in stable condition with a PICC line antibiotics. DISCHARGE DISPOSITION: Home. DISCHARGE CONDITION: Stable. DISCHARGE INSTRUCTIONS: The patient will receive PICC line antibiotics for left lower extremity infection. He will follow up with Dr. Murphy. He will follow up in the Orthopedic Clinic for re-evaluation in one week. He may continue to weight bear as tolerated. DISCHARGE MEDICATIONS: See MAR. This is China Crandall PA-C, dictating on behalf of Reg Betancourt. Job ID: [id number]
--- NOTE | 2018-06-15 07:17 | PQF ---
LINH LOWERY CHRISTOPHER E MD [id number] [facility] A- [id number] CLINICAL DOCUMENTATION CLARIFICATION FORM: POST DISCHARGE DATE: 06/15/2018 ATTN: Dr. Betancourt Please exercise your independent, professional judgment in responding to the clarification form. Clinical indicators are provided on the bottom of this form for your review Please check appropriate box(s) to clarify if the following diagnosis has been ruled in or ruled out: Sepsis [ ] Ruled in diagnosis [ ] Continue to treat [ ] Resolved [ ] Ruled out diagnosis [ ] Cannot rule out diagnosis [ ] Other diagnosis (please specify) [ x] Unable to determine In addition, please specify: Present on Admission (POA): [ ] Yes [ ] No [ x ] Unable to determine For continuity of documentation, please document condition throughout progress notes and discharge summary. Thank You. CLINICAL INDICATORS - SIGNS / SYMPTOMS / LABS Per 05/[address] Fuchs: Sepsis with acute organ dysfunction probably secondary to left lower extremity cellulitis. Per Hospitalist progress notes: Sepsis with acute organ dysfunction, due to LLE cellulitis. RISK FACTORS Cellulitis left leg. TREATMENTS Per H&P: IV Levaquin. IV Vancomycin. Per 05/[address] Fuchs: IV Clindamycin. (This form is maintained as a part of the permanent medical record) 2014 [employer], [employer]. All Rights Reserved Kimberly [email or web address] [phone] [email or web address]
== END 2018-06-02 14:22 | disposition home or self-care (01) | DRG 602 ==
LOC: SURG A 04:24
PROVIDERS: ADMIT Orthopaedic Surgery; ATTEND Orthopaedic Surgery
PROC: 02HV33Z Insertion of Infusion Device into Superior Vena Cava, Percutaneous Approach (ICD-10-PCS; principal; 2018-05-26)
DX: L03.116 Cellulitis of left lower limb (principal); A41.9 Sepsis, unspecified organism; R65.20 Severe sepsis without septic shock; E87.1 Hypo-osmolality and hyponatremia; K57.30 Diverticulosis of large intestine without perforation or abscess without bleeding; F17.210 Nicotine dependence, cigarettes, uncomplicated; Q63.1 Lobulated, fused and horseshoe kidney; K59.00 Constipation, unspecified; E66.9 Obesity, unspecified; Z68.39 Body mass index [BMI] 39.0-39.9, adult; Z88.0 Allergy status to penicillin
CPT/HCPCS: 36415; 36416; 36569; 74176; 80048; 80053; 80202; 81001; 83605; 83735; 85025; 86140; 87040; 87086; C1751; J1644; J1956; J2270; J3370; J3490; J7050

== ENCOUNTER 2018-08-23 09:29 | Observation (INO) | payer OTHER ==
[2018-08-23 10:20] LABS: #Eosinphils 0.1 thou/uL (0.0-0.7); #Lymphocytes 1.8 thou/uL (1.20-3.40); #Monocytes 0.7 thou/uL (0.11-0.59); #Neutrophils 8.3 thou/uL (1.40-6.50); %Basophils 0.3 % (0.0-1.0); %Lymphocytes 16.4 % (21.0-51.0); %Monocytes 6.2 % (0.0-10.0); %Neutrophils 76.1 % (42.0-75.0); Hemoglobin 14.6 g/dL (14.0-18.0); Mean Corpuscular HGB CONC 33.3 g/dL (32.0-36.0); Mean Corpuscular Hemoglobin 28.8 pg (27.0-31.0); Mean Corpuscular Volume 86.4 fL (78.0-98.0); Mean Platelet Volume 6.5 fL (7.4-10.4); Platelet Count 370 thou/uL (130-400); RBC Distribution Width 12.1 % (11.5-14.5); Red Blood Cell (RBC) Count 5.09 mill/uL (4.70-6.10); White Blood Cell (WBC) Count 10.9 thou/uL (4.8-10.8)
[2018-08-23] MEDS ORDERED: Ibuprofen 800 MG TAB ONE (10:25)
[2018-08-23 10:42] LABS: ALT (SGPT) 20 U/L (8-55); AST (SGOT) 15 U/L (5-34); Albumin 3.8 g/dL (3.5-5.0); Alkaline Phosphatase 91 U/L (40-150); Anion Gap 12 mmol/L (10-20); BUN (Urea Nitrogen) 13 mg/dL (8.9-20.6); Bilirubin, Total 1.1 mg/dL (0.2-1.2); Calc. Creatinine Clearance 0 mL/min (70-130); Calcium 9.5 mg/dL (7.8-10.44); Carbon Dioxide 28 mmol/L (22-29); Chloride 100 mmol/L (98-107); Estimated GFR-MDRD Greater than 90; Globulin 4.1 g/dL (2.4-3.5); Glucose 122 mg/dL (70-105); Potassium 3.7 mmol/L (3.5-5.1); Protein, Total 7.9 g/dL (6.0-8.3); Sodium 136 mmol/L (136-145)
--- NOTE | 2018-08-23 10:44 | RAD ---
F2 views left femur. HISTORY: Femoral pain. AP and lateral views left femur is obtained on 08/23/2018 and comparison made to previous exam from . There are there is an intraosseous lenora across the comminuted distal left femoral fracture. Proximal d istal fracture fragments remain some callus formation is seen however the osseous component s have not fused at this time and lucencies remain. 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
--- NOTE | 2018-08-23 13:38 | ULT ---
VENOUS DOPPLER ULTRASOUND OF THE LEFT LOWER EXTREMITY: HISTORY: Left lower extremity pain. TECHNIQUE: Baldwin-scale ultrasound with color-flow and spectral Doppler imaging of the deep venous system of the l eft lower extremity is performed. FINDINGS: There is good flow, compression, and augmentation noted in the left common femoral, femoral, deep fem oral, popliteal, posterior tibial, and greater saphenous veins. IMPRESSION: No evidence of deep venous thrombosis in the left lower extremity. POS: C
[2018-08-23 14:28] VITALS: BMI 42.3
[2018-08-23] MEDS ORDERED: Lidocaine 1% (PF) 30 ML VIAL ONE (17:04)
[2018-08-23 18:10] LABS: BF Color Red; Body Fluid Source Synovial Fluid; Clarity Cloudy/Turbid (Clear); Tube # EDTA
[2018-08-23 18:11] LABS: RBC Background Count 0.002; RBC Count-Automated 73000 /cumm; WBC/NonHematic-Auto 352 /cumm
--- NOTE | 2018-08-23 18:18 | HP ---
CHIEF COMPLAINT: Left leg pain and fever. HISTORY OF PRESENT ILLNESS: Mr. Espinoza is a 37-year-old male, who has a history of an open left femur fracture related to a crush injury. He has had multiple surgeries including bone grafting of his open segmental femur fracture with bone loss. He has an intramedullary nail in place. He has had large open wounds in the past, however, these have largely healed. He has been doing well. At his last hospital admission, he was discharged home on suppressive p.o. antibiotics and has been followed by Dr. Murphy. The patient currently states that he ran out of his p.o. antibiotics on Tuesday, 2 days ago. He contacted Dr. Murphy' office and was told to not to refill the medication because he would be seen in the clinic tomorrow, July. Yesterday, he felt that he was starting to develop fever of which he states ranged from 99.0 Fahrenheit to 100.8 degrees Fahrenheit. He felt that his left leg was hot and "felt like it did when he had the infection before." He currently denies any cough, nasal drainage, sore throat or any other symptoms. He states that his knee has been hurting since his last hospital admission in April. No new falls or trauma. PAST MEDICAL HISTORY: Negative. PAST SURGICAL HISTORY: Previous abdominal surgery as an infant and also multiple left femur and thigh surgeries. SOCIAL HISTORY: The patient drinks alcohol. He is a daily smoker. He is on chronic narcotics related to his recent injury. ALLERGIES: PENICILLIN. FAMILY HISTORY: Reviewed and noncontributory. PHYSICAL EXAMINATION: VITAL SIGNS: Temperature of 98.3, pulse of 114, respiratory rate of 18, O2 saturation of 97% on room air, and blood pressure 120/86. GENERAL: The patient is awake and alert. He is in no apparent distress. He is pleasant and cooperative with exam today. His is seated at bedside. HEENT: Head is normocephalic and atraumatic. NECK: Supple. Trachea midline. RESPIRATORY: Breathing nonlabored. EXTREMITIES: Left lower extremity was evaluated. There is no erythema noted. He has chronic-appearing healing wound to his anterior thigh. This is not changed in appearance. He is able to actively move his hip, knee and ankle without any difficulty. His thigh and lower leg are nontender to palpation. His knee is mildly tender to palpation globally without any specific point tenderness. Of note, there is a rash present to the lower distal third of the lower leg including the ankle and foot. This appears to be a petechial sort of rash. Distal neurovascular status is intact. No open wounds are noted. RADIOGRAPHIC DATA: Radiographic findings including views of the left femur were obtained today. These demonstrate an IM nail present to a left segmental femur fracture. This is unchanged in appearance since the last clinical x-rays taken in the office. LABORATORY DATA: White blood cell count of 10.9, hemoglobin of 14.6, hematocrit of 44.0, and platelet count of 370. Sed rate is 24. CRP is 6.63. ASSESSMENT: Low-grade fever with continuing left leg pain. PLAN: At this point, we have admitted the patient for overnight observation. It appears that he was concerned over what appears to be a low-grade fever from home. Given his current condition and that he has stopped his antibiotics recently, he also has an upcoming appointment with Dr. Murphy tomorrow, we have gone ahead and consulted Dr. Murphy to see the patient while in the hospital. We have also decided to go ahead and aspirate joint fluid from the patient's left knee and send this for Gram stain and culture as well as cell count and crystal analysis. We will continue to follow. Job ID: [id number]
[2018-08-23 18:29] LABS: Synovial Fluid, Glucose 99 mg/dL (Not Available); Synovial Fluid, Protein 2.9 g/dL (Not Available); Synovial Fluid, Uric Acid Less than 5.0 mg/dL (Not Available)
[2018-08-23 18:39] LABS: BF Segmented Neutrophils 34 %; Cell Count Non Hematic 39 %; Eosinophils 1 %; Lymphocytes 26 %
[2018-08-23] MEDS: traMADol HCl 50 MG TAB PO PRN (18:46)
[2018-08-24] MEDS: HYDROcodone/Acetaminophen 10/325 mg Tablet PO PRN ×3 (00:42→18:45)
[2018-08-24] MEDS: Gabapentin 300 MG CAP PO PRN ×2 (00:43→08:50)
[2018-08-24] MEDS: Cyclobenzaprine 10 MG TAB PO PRN (00:45)
[2018-08-24] MEDS: traMADol HCl 50 MG TAB PO PRN (13:11)
[2018-08-24] MEDS: Ibuprofen 800 MG TAB PO PRN (13:12)
[2018-08-24] MEDS ORDERED: ISOVUE-370 76%-LOCM 1 ML ONE (14:30)
--- NOTE | 2018-08-24 17:48 | CON ---
DATE OF CONSULTATION: 08/24/2018 REASON FOR CONSULTATION: Concern with recrudescence of previously treated infection in left lower extremity. HISTORY OF PRESENT ILLNESS: A 37-year-old patient, whom we had seen in April 2018 when he presented with a history of working related injury with fractures of left and right femurs and exposed type 3 fractures. In August 2017, the patient had irrigation and debridement of a left-sided grade 3 open femur fracture with external fixation. A few days later, he had removal of the external fixator and then placement of an intramedullary nail fixation of the left femur plus I and D of the area. He developed nonunion of the left femur and bone grafting was carried out. In December 2017, he had serous fluid drainage from the anterior aspect of the left thigh, had further I and D of the area. There was only some superficial fat necrosis noted. Then he had sudden onset of pain in the left side, which is started 3 or 4 days before admission. This was associated with neutrophilia and bandemia, which was responded to antimicrobial therapy. A CT scan of the extremity showed abnormal increased soft tissues density involving the left thigh musculature and subcutaneous tissues and persistence of comminuted unhealed fracture deformity in the distal left femur. The previous cultures from January 20, 2018, revealed methicillin-sensitive Staphylococcus aureus. The patient was continued on IV cefazolin and he continued his treatment until July 18 and then was switched to oral Keflex, and he took the Keflex until 3 days before this visit and then discontinued. Two days after discontinuing Keflex, he noticed a worsening pain in the left thigh anteriorly with some low-grade temperature elevation up to 100.8. He also felt that the temperature of the skin of the thigh was higher. No drainage. No headaches, visual symptoms, sore throat, odynophagia, or dysphagia. No cough or sputum production. No chest pain. No abdominal pain. No diarrhea. No genitourinary symptoms. PAST MEDICAL HISTORY: Includes the above orthopedic problems, but before this he never had any issues. ALLERGIES: PENICILLIN. DOES NOT REMEMBER EXACTLY WHAT KIND OF ALLERGY HE HAD, BUT SINCE CHILDHOOD. PAST SURGICAL HISTORY: Includes laparotomy when he was a child to reduce intussusception. SOCIAL HISTORY: . 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 Smokes daily. Drinks daily. FAMILY HISTORY: Noncontributory. CURRENT MEDICATION LIST: 1. Hydrocodone. 2. Ibuprofen. 3. Tramadol. PHYSICAL EXAMINATION: GENERAL: He has been afebrile here in the hospital. SKIN: Shows healed wound in the left anterior thigh. No erythema. No drainage. No lymphadenopathy. Peripheral IV access. HEENT: Ocular movements conjugate. Oral cavity normal. NECK: Supple. LUNGS: Symmetric. Clear breath sounds. HEART: S1 and S2 regular rate. ABDOMEN: Soft. Not distended or tender. No ascites. No bladder distention. MUSCULOSKELETAL: No joint inflammatory activity outside the area of involvement. The left knee is a little bit swollen. He did have an arthrocentesis, which is discussed below. NEUROLOGIC: Cognitive function appears to be intact. Pulses are 2+ in dorsalis pedis. LABORATORY DATA: White cell count 10.9, hemoglobin 14.6, platelets 370, with 76 % neutrophils. Sodium 136, creatinine 0.86 with normal liver profile. CRP is 6.63. Synovial fluid with 352 wbc's and 73,000 rbc's. Preliminary culture results from the knee aspirate with negative at 12 hours. The patient had a vascular ultrasound, which showed no evidence of deep vein thrombosis and there was a femur x-ray with intraosseous left femoral lenora with continues nonunion of the fracture components. ASSESSMENT: Prior left femur fracture with nonunion and infection by methicillin-sensitive Staphylococcus aureus, likely osteomyelitis. The patient received protracted IV Ancef recently completed and then transition to oral Keflex suppression and now after Keflex was discontinued, has been recrudescence of low-grade temperature elevation with perception of worsening pain at the swelling. He did have some knee effusion as well, which was then appeared to suggest an infection at this point in time. DISCUSSION: The main concern is with recrudescence of inflammatory process. We will obtain a CT of the thigh with contrast and resume Keflex suppressive therapy. Job ID: [id number] [facility]
--- NOTE | 2018-08-24 19:21 | CT ---
CT LEFT FEMUR WITH IV CONTRAST: 08/24/18 HISTORY: Left leg infection with MRSA. Worsening pain and fever. COMPARISON: 05/24/18. FINDINGS: Internal fixation left femur consisting of a long medullary lenora is again demonstrated. Fracture plane s remain very lucent with minimal calcific bridging of the upper most portion of the fracture, simila r in appearance to the previous study. Mild callus formation at the lower medial margin of the fractu re is also unchanged in appearance. Extensive postoperative changes of the subcutaneous and muscular tissues of the lower thigh are again demonstrated, including a small metallic fragment within the are a of scarring in the subcutaneous tissues posterolateral to the inferior most margin of the major fra cture plane. The subcutaneous stranding and ill-defined fluid throughout the subcutaneous tissues is significantly less than on the prior study from 05/24/18. Minimal fluid within the knee joint. No soft tissue or i ntra-articular gas. There is now very subtle lucency around the distal portion of the medullary lenora at the level of the distal femoral metaphysis, measuring up to 0.4 cm. IMPRESSION: Overall improvement in appearance of the superficial and deep soft tissue fluid and stranding in the area of inflammation at the distal thigh where extensive surgery has been performed. No significant h ealing of the bone has taken place since the prior study. No soft issue or intraosseous gas. Mild lucency has developed around the distal portion of the medullary lenora, involving the largest dist al fragment. Consider developing loosening. Minimal joint fluid of the left knee without evidence of complication. POS: VERNON
[2018-08-24] MEDS: Cephalexin 250 MG CAP PO SCH (21:01)
[2018-08-25] MEDS: Cyclobenzaprine 10 MG TAB PO PRN ×2 (00:55→14:01)
[2018-08-25] MEDS: HYDROcodone/Acetaminophen 10/325 mg Tablet PO PRN ×2 (00:55→14:02)
[2018-08-25] MEDS: Gabapentin 300 MG CAP PO PRN (00:55)
[2018-08-25] MEDS: Cephalexin 250 MG CAP PO SCH ×2 (05:57→14:01)
[2018-08-25] MEDS: Ibuprofen 800 MG TAB PO PRN (08:14)
[2018-08-25] MEDS: traMADol HCl 50 MG TAB PO PRN (08:15)
[2018-08-25 09:12] VITALS: TEMP 97.8
[2018-08-25 14:35] VITALS: BP 130/73
--- NOTE | 2018-08-28 11:05 | DIS ---
DATE OF ADMISSION: 08/23/2018 DATE OF DISCHARGE: 08/25/2018 PROCEDURE PERFORMED: He did have a joint aspiration for gram stain, culture, cell count, crystals, which he tolerated well. We also consulted Dr. Murphy. His past history is significant for surgery on that leg with poor healing wound on the left lower extremity. His hospital stay was unremarkable. His CBC was within normal range, and his white blood cell count was 10.9. His micro did not produce any culture growth in 5 days. The patient will continue to follow up with Dr. Murphy for suppressive antibiotics. Follow up with us in 2 to 4 weeks for recheck. DISCHARGE CONDITION: Good/stable. DISPOSITION: Home. FOLLOWUP: As above. Job ID: [id number]
== END 2018-08-25 14:00 | disposition home or self-care (01) ==
LOC: ERS 09:29 → SURG A 12:30
PROVIDERS: ADMIT Orthopaedic Surgery; ATTEND Orthopaedic Surgery
DX: S72.92XK Unspecified fracture of left femur, subsequent encounter for closed fracture with nonunion (principal); T84.621A Infection and inflammatory reaction due to internal fixation device of left femur, initial encounter; B95.61 Methicillin susceptible Staphylococcus aureus infection as the cause of diseases classified elsewhere; F17.200 Nicotine dependence, unspecified, uncomplicated; Z88.0 Allergy status to penicillin; Z79.2 Long term (current) use of antibiotics; Z98.890 Other specified postprocedural states
CPT/HCPCS: 36415; 80053; 82945; 83605; 84157; 84560; 85025; 85060; 85652; 86140; 87040; 87070; 87205; 87804; 89051; 89060; 96360; 96361; G0378; J2001; Q9966

== ENCOUNTER 2018-11-24 05:55 | Inpatient (IN) | payer OTHER ==
[2018-11-24] MEDS ORDERED: Fentanyl 100 MCG/2 ML VIAL ONE ×4 (08:43→13:06)
[2018-11-24] MEDS ORDERED: Midazolam HCl 2 mg/2 ml Vial ONE (08:43)
[2018-11-24] MEDS ORDERED: Ondansetron PF 4 MG/2 ML Vial ONE (10:52)
[2018-11-24] MEDS ORDERED: PROPOFOL 200 MG/20 ML VIAL ONE (10:52)
[2018-11-24] MEDS ORDERED: Esmolol 100 MG/10 ML VIAL ONE (10:52)
[2018-11-24] MEDS ORDERED: Lidocaine 1% PF 5 ML VIAL ONE (10:52)
[2018-11-24] MEDS ORDERED: Bupivacaine HCl 0.5%/Epinephrine 1:200,000/PF 30 ml Vial ONE (11:36)
[2018-11-24] MEDS ORDERED: HYDROcodone/Acetaminophen 10/325 mg Tablet PO PRN (12:15)
[2018-11-24] MEDS ORDERED: Acetaminophen 325 MG TAB PO PRN (12:15)
[2018-11-24] MEDS ORDERED: Communication Order-Pharmacy FS SCH (12:15)
[2018-11-24] MEDS ORDERED: TETANUS AND DIPHTHERIA TOX/PF 0.5 ML DISP.SYRIN IM SCH (12:15)
[2018-11-24] MEDS ORDERED: traMADol HCl 50 MG TAB PO PRN (12:15)
[2018-11-24] MEDS ORDERED: Promethazine HCl 25 MG/ML VIAL SLOW IVP PRN (12:29)
[2018-11-24] MEDS ORDERED: Promethazine HCl 25 MG/ML VIAL IM PRN (12:29)
[2018-11-24] MEDS ORDERED: HYDROmorphone 2 MG/ML VIAL ONE (12:29)
[2018-11-24] MEDS ORDERED: Ondansetron HCl/PF 4 MG/2 ML Vial IVP PRN (12:29)
[2018-11-24] MEDS ORDERED: HYDROmorphone 2 MG/ML VIAL SLOW IVP PRN (12:29)
[2018-11-24] MEDS ORDERED: Ketorolac Tromethamine 30 MG/ML VIAL ONE (12:32)
[2018-11-24] MEDS ORDERED: Labetalol HCl 100 MG/20 ML VIAL ONE (13:04)
[2018-11-24] MEDS ORDERED: Clindamycin/D5W 900 MG in Premix Bag 1 BAG IVPB SCH (14:00)
[2018-11-24] MEDS: Morphine 4 MG/ML VIAL SLOW IVP PRN ×2 (14:09→16:30)
--- NOTE | 2018-11-24 15:09 | RAD ---
RIGHT FEMUR 2 VIEWS: HISTORY: ORIF right femur. FINDINGS/IMPRESSION: Six spot fluoroscopic images of the right femur demonstrate reduction and internal fixation of the ri ght femoral fractures with plate and screws. POS: VERNON
[2018-11-24 15:30] VITALS: BMI 42.5
[2018-11-24] MEDS: CEFAZOLIN 2 GM in Premix Bag 1 BAG IVPB SCH (16:35)
[2018-11-24] MEDS: Ondansetron PF 4 MG/2 ML Vial IV PRN (17:33)
[2018-11-24] MEDS: HYDROcodone/Acetaminophen 10/325 mg Tablet PO PRN (19:45)
[2018-11-24] MEDS: Aspirin 81 mg Enteric Coated Tablet PO SCH (20:43)
[2018-11-25] MEDS: HYDROcodone/Acetaminophen 10/325 mg Tablet PO PRN (00:16)
[2018-11-25] MEDS: CEFAZOLIN 2 GM in Premix Bag 1 BAG IVPB SCH ×2 (00:35→08:12)
[2018-11-25] MEDS: Ondansetron PF 4 MG/2 ML Vial IV PRN (04:10)
[2018-11-25] MEDS: Morphine 4 MG/ML VIAL SLOW IVP PRN ×2 (04:12→08:12)
[2018-11-25] MEDS ORDERED: Ketorolac Tromethamine 60 MG/2 ML VIAL IVP PRN (05:10)
[2018-11-25] MEDS ORDERED: Fentanyl 100 MCG/2 ML VIAL SLOW IVP PRN (05:29)
[2018-11-25 06:47] LABS: #Eosinphils 0.1 thou/uL (0.0-0.7); #Lymphocytes 2.3 thou/uL (1.20-3.40); #Monocytes 1.6 thou/uL (0.11-0.59); #Neutrophils 6.8 thou/uL (1.40-6.50); %Basophils 0.1 % (0.0-1.0); %Eosinophils 0.8 % (0.0-10.0); %Lymphocytes 21.1 % (21.0-51.0); %Monocytes 14.6 % (0.0-10.0); %Neutrophils 63.4 % (42.0-75.0); Hemoglobin 11.3 g/dL (14.0-18.0); Mean Corpuscular HGB CONC 33.4 g/dL (32.0-36.0); Mean Corpuscular Hemoglobin 29.9 pg (27.0-31.0); Mean Corpuscular Volume 89.5 fL (78.0-98.0); Mean Platelet Volume 6.8 fL (7.4-10.4); Platelet Count 296 thou/uL (130-400); RBC Distribution Width 13.3 % (11.5-14.5); Red Blood Cell (RBC) Count 3.79 mill/uL (4.70-6.10); White Blood Cell (WBC) Count 10.7 thou/uL (4.8-10.8)
[2018-11-25 07:17] LABS: ALT (SGPT) 21 U/L (8-55); AST (SGOT) 18 U/L (5-34); Albumin 3.1 g/dL (3.5-5.0); Alkaline Phosphatase 67 U/L (40-150); Anion Gap 12 mmol/L (10-20); BUN (Urea Nitrogen) 14 mg/dL (8.9-20.6); Bilirubin, Total 0.8 mg/dL (0.2-1.2); Calc. Creatinine Clearance 229 mL/min (70-130); Calcium 8.3 mg/dL (7.8-10.44); Carbon Dioxide 28 mmol/L (22-29); Chloride 101 mmol/L (98-107); Estimated GFR-MDRD Greater than 90; Globulin 2.8 g/dL (2.4-3.5); Glucose 118 mg/dL (70-105); Potassium 4.1 mmol/L (3.5-5.1); Protein, Total 5.9 g/dL (6.0-8.3); Sodium 137 mmol/L (136-145)
[2018-11-25] MEDS: Aspirin 81 mg Enteric Coated Tablet PO SCH ×2 (08:12→20:52)
[2018-11-25] MEDS ORDERED: Naloxone HCl 0.4 mg/ml Vial IV PRN (09:44)
[2018-11-25] MEDS ORDERED: diphenhydrAMINE 50 MG/ML VIAL IM/IV PRN (09:44)
[2018-11-25] MEDS ORDERED: Promethazine HCl 25 MG/ML VIAL IM PRN (09:44)
[2018-11-25] MEDS ORDERED: diphenhydrAMINE 25 MG CAP PO PRN (09:44)
[2018-11-25] MEDS ORDERED: Ondansetron PF 4 MG/2 ML Vial IVP PRN (09:44)
[2018-11-25] MEDS: Morphine Sulfate 100 MG in Dextrose 5% in Water 98 ML IV SCH (11:00)
--- NOTE | 2018-11-25 11:00 | PRG ---
DATE OF SERVICE: 11/25/2018 SUBJECTIVE: Sang is postop day 1 from a left hip femoral nonunion with explantation of intramedullary femoral nail and conversion to open reduction and internal fixation. I was called by nursing staff earlier this morning for changes in pain medication and recommendations and consulted with Pain Service to evaluate and treat. The patient has no complaints currently, and he has been able to answer the phone and talk to family members by telephone. OBJECTIVE: VITAL SIGNS: Temperature , pulse 122, respiratory rate is 15, O2 saturation is on room air, blood pressure is 115/75. GENERAL: He is alert, oriented, responsive, and appropriate with examiner. EXTREMITIES: His incision is clean. No strike through. He is neurovascularly intact in both lower extremities. LABORATORY DATA: Hemoglobin and hematocrit 11.3 and 33.9. IMPRESSION: A 37-year-old male postoperative day 1 left hip conversion from intramedullary nail fixation to periarticular lateral plate open reduction and internal fixation secondary to nonunion. PLAN: Continue current management. Defer to Pain Service. I believe they are going to place morphine RN NAVIGATOR. Job ID: [id number]
[2018-11-25] MEDS: Simethicone Chewable 80 MG TAB PO PRN ×2 (15:24→20:52)
[2018-11-25] MEDS ORDERED: Sodium Chloride 0.45% 1,000 ML IV SCH (22:15)
[2018-11-25 22:22] LABS: #Eosinphils 0.1 thou/uL (0.0-0.7); #Monocytes 1.4 thou/uL (0.11-0.59); #Neutrophils 9.8 thou/uL (1.40-6.50); %Basophils 0.2 % (0.0-1.0); %Eosinophils 0.8 % (0.0-10.0); %Lymphocytes 14.8 % (21.0-51.0); %Monocytes 10.5 % (0.0-10.0); %Neutrophils 73.7 % (42.0-75.0); Mean Corpuscular HGB CONC 32.6 g/dL (32.0-36.0); Mean Corpuscular Hemoglobin 29.1 pg (27.0-31.0); Mean Corpuscular Volume 89.2 fL (78.0-98.0); Mean Platelet Volume 6.7 fL (7.4-10.4); Platelet Count 272 thou/uL (130-400); RBC Distribution Width 13.1 % (11.5-14.5); Red Blood Cell (RBC) Count 3.77 mill/uL (4.70-6.10); White Blood Cell (WBC) Count 13.3 thou/uL (4.8-10.8)
[2018-11-25 23:29] LABS: Bilirubin Negative (Negative); Blood, Urine Negative (Negative); Clarity CLEAR (Clear); Glucose, Urine (Dipstick) Negative (Negative); Leukocyte Negative (Negative); Nitrite Negative (Negative); Protein, Urine (Dipstick) Negative (Neg-Trace); Urobilinogen 0.2 mg/dL (0.2-1.0)
[2018-11-25 23:31] LABS: Bacteria/HPF None Seen HPF (None Seen); Hyaline Casts/LPF 0-3 HYALINE CAST LPF (0-3 Hyaline); Pathc Cast-AUWi Flag 0.68 (0-2.49); RBC/HPF 0-3 HPF (0-3); Squamous Epithelial None Seen HPF (0-3); WBC/HPF 0-3 HPF (0-3)
[2018-11-25 23:32] LABS: Urine Culture Reflex No No
--- NOTE | 2018-11-25 23:38 | PDOC.PN ---
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 - Objective MAR Reviewed: Yes Vital Signs & Weight: Vital Signs (12 hours) Temp Pulse Resp BP BP BP BP 11/25/18 23:02 98.9 F 131 H 16 110/77 11/25/18 20:00 99.9 F H 135 H 18 102/62 11/25/18 15:50 116 H 11/25/18 15:46 99.3 F 133 H 16 126/84 11/25/18 14:15 138/84 122/82 11/25/18 11:54 98.6 F 127 H 16 115/64 Pulse Ox 11/25/18 23:02 96 11/25/18 20:00 96 11/25/18 15:50 11/25/18 15:46 92 L 11/25/18 14:15 11/25/18 11:54 94 L Weight Weight 280 lb I&O: 11/24/18 11/25/18 11/26/18 06:59 06:59 06:59 Intake Total 2750 2400 Output Total 1400 1000 Balance 1350 1400 Result Diagrams: 11/25/18 22:07 11/25/18 06:06 Radiology Reviewed by me: Yes EKG Reviewed by me: Yes (Sinus Tachycardia) Phys Exam - Physical Examination Constitutional: NAD uncomfortable HEENT: PERRLA, moist MMs, sclera anicteric, oral pharynx no lesions Neck: no nodes, no JVD, supple, full ROM Respiratory: no wheezing, no rales, no rhonchi, clear to auscultation bilateral Cardiovascular: RRR, no significant murmur tachycardic Gastrointestinal: soft, non-tender, no distention, positive bowel sounds obese Musculoskeletal: no edema, pulses present post-op L hip.bandages dry Neurological: non-focal, normal sensation, moves all 4 limbs Psychiatric: normal affect, A&O x 3 Skin: no rash Dx/Plan (1) Sinus tachycardia Code(s): R00.0 - TACHYCARDIA, UNSPECIFIED Status: Acute (2) Obesity (BMI 30-39.9) Code(s): E66.9 - OBESITY, UNSPECIFIED Status: Acute - Plan DVT proph w/SCDs BP on lower side w tachycardia.will give IVF @125/hr. -: EKG,D Dimer,CXR,Cardiac Enzymes.will follow -: R/O Infection-blood and urine Cx,UA,CXR.empiric IV ABx -: low grade fever w leucocytosis. recheck labs. r/o post-op anemia -: transfer to tele. Consider further cardiac W/U if CE abnormal,eg ECHO * .Pt O/W asymptomatic and tachycardia ongoing for over 24 hours. * IM team will follow Review of Systems - Review of Systems Constitutional: fever ENT: negative: Ear Pain, Ear Discharge, Nose Pain, Nose Discharge, Nose Congestion, Mouth Pain, Mouth Swelling, Throat Pain, Throat Swelling, Other Respiratory: negative: Cough, Dry, Shortness of Breath, Hemoptysis, SOB with Excertion, Pleuritic Pain, Sputum, Wheezing Cardiovascular: negative: chest pain, palpitations, orthopnea, paroxysmal nocturnal dyspnea, edema, light headedness, other Gastrointestinal: negative: Nausea, Vomiting, Abdominal Pain, Diarrhea, Constipation, Melena, Hematochezia, Other Genitourinary: negative: Dysuria, Frequency, Incontinence, Hematuria, Retention , Other Musculoskeletal: Leg Pain. negative: Neck Pain, Shoulder Pain, Arm Pain, Back Pain, Hand Pain, Foot Pain, Other Skin: negative: Rash, Lesions, King, Bruising, Other Neurological: negative: Weakness, Numbness, Incoordination, Change in Speech, Confusion, Seizures, Other - Medications/Allergies Allergies/Adverse Reactions: Allergies Allergy/AdvReac Type Severity Reaction Status Date / Time Penicillins Allergy Verified 11/24/18 15:24 Medications: Current Medications Acetaminophen (Tylenol) 650 mg PO Q6H PRN PRN Reason: Headache/Temp >101F/Mild Pain Aspirin (Ecotrin) 81 mg PO BID GRETA Last Admin: 11/25/18 20:52 Dose: 81 mg Diphenhydramine HCl (Benadryl) 25 mg IM/IV Q3H PRN PRN Reason: Itching Diphenhydramine HCl (Benadryl) 25 mg PO Q3H PRN PRN Reason: Itching Fentanyl (Sublimaze) 50 mcg SLOW IVP Q1H PRN PRN Reason: Pain Last Admin: 11/25/18 06:19 Dose: 50 mcg Morphine Sulfate 100 mg/ (Dextrose/Water) 100 mls @ 0 mls/hr IV INF GRETA Last Admin: 11/25/18 11:00 Dose: 100 mls Sodium Chloride (1/2 Normal Saline) 1,000 mls @ 75 mls/hr IV .[id number] GRETA Last Admin: 11/25/18 22:31 Dose: 1,000 mls Vancomycin HCl 2.5 gm/ Sodium (Chloride) 500 mls @ 200 mls/hr IVPB 2359 GRETA Stop: 11/26/18 03:00 Vancomycin HCl 2 gm/ Sodium (Chloride) 500 mls @ 250 mls/hr IVPB 0800,1600, 2359 GRETA Meropenem 1 gm/ Sodium (Chloride) 100 mls @ 200 mls/hr IVPB Q8HR [facility] Miscellaneous Information (Communication Order-Pharmacy) 1 each FS ONE [facility] Stop: 12/04/18 12:16 Miscellaneous Medication (Pharmacy To Dose) 1 each IVPB PRN PRN PRN Reason: Pharmacy to dose Naloxone HCl (Narcan) 0.2 mg IV Q5MIN PRN PRN Reason: RR <8 or pt obtun/unarousable Ondansetron HCl (Zofran) 4 mg IV Q6H PRN PRN Reason: Nausea Last Admin: 11/25/18 04:10 Dose: 4 mg Ondansetron HCl (Zofran) 4 mg IVP Q6H PRN PRN Reason: Nausea/Vomiting Promethazine HCl (Phenergan) 12.5 mg IM Q4H PRN PRN Reason: Nausea/Vomiting Simethicone (Mylicon Chewable) 80 mg PO Q6H PRN PRN Reason: Gas Pain Last Admin: 11/25/18 20:52 Dose: 80 mg Sodium Chloride (Flush - Normal Saline) 10 ml IVF PRN PRN PRN Reason: Saline Flush
[2018-11-25] MEDS ORDERED: Vancomycin HCl 2.5 GM in Sodium Chloride 0.9% 500 ML IVPB SCH (23:59)
[2018-11-26] MEDS: Sodium Chloride 0.45% 1,000 ML IV SCH ×4 (00:27→23:36)
[2018-11-26] MEDS: MEROPENEM 1 GM/50 ML 1 GM in Premix Bag 1 BAG IVPB SCH ×2 (03:11→09:45)
[2018-11-26 04:44] LABS: #Eosinphils 0.1 thou/uL (0.0-0.7); #Lymphocytes 1.6 thou/uL (1.20-3.40); #Monocytes 1.5 thou/uL (0.11-0.59); #Neutrophils 9.7 thou/uL (1.40-6.50); %Basophils 0.1 % (0.0-1.0); %Eosinophils 0.9 % (0.0-10.0); %Lymphocytes 12.5 % (21.0-51.0); %Monocytes 11.9 % (0.0-10.0); %Neutrophils 74.6 % (42.0-75.0); Hemoglobin 10.8 g/dL (14.0-18.0); Mean Corpuscular HGB CONC 33.5 g/dL (32.0-36.0); Mean Corpuscular Hemoglobin 30.2 pg (27.0-31.0); Mean Platelet Volume 6.7 fL (7.4-10.4); Platelet Count 259 thou/uL (130-400); Red Blood Cell (RBC) Count 3.58 mill/uL (4.70-6.10)
[2018-11-26 04:50] LABS: ALT (SGPT) 13 U/L (8-55); AST (SGOT) 14 U/L (5-34); Albumin 2.9 g/dL (3.5-5.0); Alkaline Phosphatase 67 U/L (40-150); Anion Gap 12 mmol/L (10-20); BUN (Urea Nitrogen) 7 mg/dL (8.9-20.6); Bilirubin, Total 1.5 mg/dL (0.2-1.2); Calc. Creatinine Clearance 250 mL/min (70-130); Carbon Dioxide 26 mmol/L (22-29); Chloride 97 mmol/L (98-107); Estimated GFR-MDRD Greater than 90; Globulin 2.9 g/dL (2.4-3.5); Glucose 114 mg/dL (70-105); Protein, Total 5.8 g/dL (6.0-8.3); Sodium 131 mmol/L (136-145)
--- NOTE | 2018-11-26 07:35 | ULT ---
ULTRASOUND WITH DOPPLER DUPLEX VENOUS LOWER EXTREMITY BILATERAL: CPT: 29946 ICD-10-PCS: B54D INDICATION: Pain, edema, fever, tachycardia. TECHNIQUE: Color flow Doppler, spectral waveform analysis of pulsed Doppler, and rodríguez-scale imaging with janak ina and augmentation, were used to evaluate the bilateral common femoral, femoral, popliteal, supervisor production ior tibial, and superficial femoral, veins; and the proximal portions of the profunda femoral and gre ater saphenous, veins. FINDINGS: There is appropriate compressibility and flow within the imaged deep venous system of each lower extr emity without evidence of deep venous thrombosis. IMPRESSION: No deep venous thrombosis identified within the visualized bilateral lower extremities. POS: NWK
[2018-11-26] MEDS: Aspirin 81 mg Enteric Coated Tablet PO SCH ×2 (08:24→19:34)
--- NOTE | 2018-11-26 08:40 | CT ---
PRELIMINARY REPORT/[facility]/EMERGENCY AFTER HOURS PROCEDURE: EXAM: CT Angiography Chest With Contrast EXAM DATE/TIME: 11/26/2018 2:37 AM CLINICAL HISTORY: 37 years old, male; Abnormal findings; Abnormal diagnostic tests; Elevated d-dimer; Patient HX: Inpt. Eval for possible pe; Fever, tachycardia, post-op (lower ext) . elevated d dimer. PT denies chest pa in or SOB TECHNIQUE: Imaging protocol: Axial computed tomographic angiography images of the chest with intravenous contras t using CT angiography protocol. 3D rendering: MIP reconstructed images were created and reviewed. COMPARISON: No relevant prior studies available. FINDINGS: Pulmonary arteries: Bolus timing is insufficient for definitive exclusion of pulmonary emboli. Aorta: Unremarkable. No aortic aneurysm. No aortic dissection. Lungs: There is mild bibasilar atelectasis. Pleural space: Unremarkable. No pneumothorax. No pleural effusion. Heart: Unremarkable. No cardiomegaly. No pericardial effusion. Lymph nodes: Unremarkable. No enlarged lymph nodes. Bones/joints: Unremarkable. No acute fracture. Soft tissues: Unremarkable. IMPRESSION: 1. No CT evidence of acute thoracic pathology. 2. No obvious acute pulmonary embolus although evaluation is significantly limited by bolus timing. Thank you for allowing us to participate in the care of your patient. Dictated and Authenticated by: Ehsan Chambers MD 11/26/2018 3:17 AM Central Time ([place] & [place]) FINAL REPORT CT ANGIO CHEST PERFORMED WITH IV CONTRAST ENHANCEMENT WITH 3D RECONSTRUCTIONS: Date: 11/26/18 HISTORY: Fever, tachycardia, postop, elevated D-Dimer. FINDINGS: The lower lobe shows subsegmental atelectatic change. No confluent pneumonic process. No signs of ple ural effusion or pneumothorax. Old left rib fractures incidentally seen. The thoracic aorta is normal in caliber. There is poor pulmonary artery opacification; the bolus alexus ng was not adequate and this is nondiagnostic for evaluation for pulmonary embolus. IMPRESSION: 1. Subsegmental atelectatic changes in the lower lobes. 2. Essentially nondiagnostic study for pulmonary embolus due to poor bolus timing. If clinically ind icated, a repeat exam would be suggested. This report is in agreement with the preliminary report issued by [facility].
[2018-11-26] MEDS ORDERED: Vancomycin HCl 1 GM in Premix Bag 1 BAG IVPB SCH (09:00)
--- NOTE | 2018-11-26 10:20 | RAD ---
PORTABLE CHEST: Date: 11/25/18 HISTORY: Chest pain. COMPARISON: 09/12/17 study. FINDINGS: Heart size and mediastinum are within normal limits. The lungs are clear of infiltrates. No significa nt bony findings. IMPRESSION: No active intrathoracic disease. POS: [facility]
[2018-11-26] MEDS ORDERED: Iopamidol 370 76% 100 ML VIAL ONE (11:41)
[2018-11-26] MEDS: Morphine Sulfate 100 MG in Dextrose 5% in Water 98 ML IV SCH (12:38)
--- NOTE | 2018-11-26 13:06 | PDOC.PN ---
- Subjective Encounter Start Date: 11/26/18 Encounter Start Time: 11:00 Subjective: pt up in bed pain is well controlled - Objective Vital Signs & Weight: Vital Signs (12 hours) Temp Pulse Resp BP Pulse Ox 11/26/18 12:00 98.8 F 11/26/18 07:15 92 L 11/26/18 04:00 99.2 F 92 L 11/26/18 02:14 98.7 F 125 H 16 121/81 94 L Weight Weight 280 lb Most Recent Monitor Data Heart Rate from ECG 117 NIBP 135/78 NIBP BP-Mean 97 Respiration from ECG 17 SpO2 94 I&O: 11/25/18 11/26/18 11/27/18 06:59 06:59 06:59 Intake Total 2750 6641 600 Output Total 1400 2100 500 Balance 1350 4541 100 Result Diagrams: 11/26/18 04:17 11/26/18 04:17 Phys Exam - Physical Examination Neck: no nodes, no JVD, supple, full ROM Respiratory: no wheezing, no rales, no rhonchi, wheezing present, clear to auscultation bilateral Cardiovascular: RRR, no significant murmur, no rub, gallop, irregular Gastrointestinal: soft, non-tender, no distention, positive bowel sounds Dx/Plan (1) Sinus tachycardia Code(s): R00.0 - TACHYCARDIA, UNSPECIFIED Status: Acute (2) Crushing injury of left leg Code(s): S87.82XA - CRUSHING INJURY OF LEFT LOWER LEG, INITIAL ENCOUNTER Status: Acute (3) Obesity (BMI 30-39.9) Code(s): E66.9 - OBESITY, UNSPECIFIED Status: Acute - Plan 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 Review of Systems - Review of Systems Respiratory: negative: Cough, Dry, Shortness of Breath, Hemoptysis, SOB with Excertion, Pleuritic Pain, Sputum, Wheezing Cardiovascular: negative: chest pain, palpitations, orthopnea, paroxysmal nocturnal dyspnea, edema, light headedness, other Gastrointestinal: negative: Nausea, Vomiting, Abdominal Pain, Diarrhea, Constipation, Melena, Hematochezia, Other - Medications/Allergies Allergies/Adverse Reactions: Allergies Allergy/AdvReac Type Severity Reaction Status Date / Time Penicillins Allergy Verified 11/24/18 15:24 Medications: Current Medications Acetaminophen (Tylenol) 650 mg PO Q6H PRN PRN Reason: Headache/Temp >101F/Mild Pain Last Admin: 11/26/18 03:10 Dose: 650 mg Aspirin (Ecotrin) 81 mg PO BID [facility] Last Admin: 11/26/18 08:24 Dose: 81 mg Diphenhydramine HCl (Benadryl) 25 mg IM/IV Q3H PRN PRN Reason: Itching Diphenhydramine HCl (Benadryl) 25 mg PO Q3H PRN PRN Reason: Itching Fentanyl (Sublimaze) 50 mcg SLOW IVP Q1H PRN PRN Reason: Pain Last Admin: 11/25/18 06:19 Dose: 50 mcg Morphine Sulfate 100 mg/ (Dextrose/Water) 100 mls @ 0 mls/hr IV INF [facility] Last Admin: 11/26/18 12:38 Dose: 100 mls Vancomycin HCl 2 gm/ Sodium (Chloride) 500 mls @ 250 mls/hr IVPB 0800,1600, 2359 [facility] Last Admin: 11/26/18 08:19 Dose: 500 mls Meropenem 1 gm/ Device 50 mls @ 100 mls/hr IVPB 0200,1000,1800 [facility] Last Admin: 11/26/18 09:45 Dose: 50 mls Sodium Chloride (1/2 Normal Saline) 1,000 mls @ 125 mls/hr IV .Q8H [facility] Last Admin: 11/26/18 08:21 Dose: 1,000 mls Miscellaneous Information (Communication Order-Pharmacy) 1 each FS ONE [facility] Stop: 12/04/18 12:16 Miscellaneous Medication (Pharmacy To Dose) 1 each IVPB PRN PRN PRN Reason: Pharmacy to dose Naloxone HCl (Narcan) 0.2 mg IV Q5MIN PRN PRN Reason: RR <8 or pt obtun/unarousable Ondansetron HCl (Zofran) 4 mg IVP Q6H PRN PRN Reason: Nausea/Vomiting Last Admin: 11/26/18 10:12 Dose: 4 mg Promethazine HCl (Phenergan) 12.5 mg IM Q4H PRN PRN Reason: Nausea/Vomiting Simethicone (Mylicon Chewable) 80 mg PO Q6H PRN PRN Reason: Gas Pain Last Admin: 11/25/18 20:52 Dose: 80 mg Sodium Chloride (Flush - Normal Saline) 10 ml IVF PRN PRN PRN Reason: Saline Flush
[2018-11-26] MEDS ORDERED: HYDROcodone/Acetaminophen 5/325 mg Tablet PO PRN (14:31)
[2018-11-26] MEDS: HYDROcodone/Acetaminophen 5/325 mg Tablet PO PRN ×3 (14:42→23:35)
[2018-11-26 23:28] LABS: Vancomycin, Trough 18.2 ug/mL
[2018-11-27] MEDS: HYDROcodone/Acetaminophen 5/325 mg Tablet PO PRN ×5 (03:46→23:15)
[2018-11-27] MEDS ORDERED: Calcium Carbonate 500 MG ChewTAB PO PRN (04:02)
[2018-11-27] MEDS: Mag-Al 1200 mg/1200 mg/30 ML UDCUP PO PRN ×2 (05:55→18:30)
[2018-11-27] MEDS: Aspirin 81 mg Enteric Coated Tablet PO SCH ×2 (07:27→20:21)
[2018-11-27] MEDS: Sodium Chloride 0.45% 1,000 ML IV SCH ×2 (10:18→18:34)
[2018-11-27 11:09] LABS: #Eosinphils 0.4 thou/uL (0.0-0.7); #Lymphocytes 1.7 thou/uL (1.20-3.40); #Monocytes 1.1 thou/uL (0.11-0.59); #Neutrophils 7.4 thou/uL (1.40-6.50); %Basophils 0.2 % (0.0-1.0); %Eosinophils 3.3 % (0.0-10.0); %Lymphocytes 15.9 % (21.0-51.0); %Monocytes 10.4 % (0.0-10.0); %Neutrophils 70.2 % (42.0-75.0); Hemoglobin 9.4 g/dL (14.0-18.0); Mean Corpuscular HGB CONC 33.6 g/dL (32.0-36.0); Mean Corpuscular Hemoglobin 29.4 pg (27.0-31.0); Mean Corpuscular Volume 87.6 fL (78.0-98.0); Mean Platelet Volume 6.5 fL (7.4-10.4); Platelet Count 250 thou/uL (130-400); RBC Distribution Width 12.8 % (11.5-14.5); Red Blood Cell (RBC) Count 3.19 mill/uL (4.70-6.10); White Blood Cell (WBC) Count 10.6 thou/uL (4.8-10.8)
[2018-11-27 11:30] LABS: ALT (SGPT) 11 U/L (8-55); AST (SGOT) 13 U/L (5-34); Albumin 2.6 g/dL (3.5-5.0); Alkaline Phosphatase 67 U/L (40-150); Anion Gap 10 mmol/L (10-20); BUN (Urea Nitrogen) 9 mg/dL (8.9-20.6); Bilirubin, Total 0.6 mg/dL (0.2-1.2); Calc. Creatinine Clearance 261 mL/min (70-130); Calcium 7.8 mg/dL (7.8-10.44); Carbon Dioxide 27 mmol/L (22-29); Chloride 101 mmol/L (98-107); Estimated GFR-MDRD Greater than 90; Globulin 2.8 g/dL (2.4-3.5); Glucose 127 mg/dL (70-105); Potassium 3.6 mmol/L (3.5-5.1); Protein, Total 5.4 g/dL (6.0-8.3); Sodium 134 mmol/L (136-145)
--- NOTE | 2018-11-27 13:53 | PDOC.PN ---
- Subjective Encounter Start Date: 11/27/18 Encounter Start Time: 10:55 Subjective: pt up in bed feels well - Objective Vital Signs & Weight: Vital Signs (12 hours) Temp Pulse Resp BP Pulse Ox 11/27/18 10:10 98.4 F 116 H 18 110/66 97 11/27/18 07:37 100 11/27/18 07:00 98.2 F 11/27/18 03:00 97.8 F Weight Weight 280 lb Most Recent Monitor Data Heart Rate from ECG 112 NIBP 108/75 NIBP BP-Mean 86 Respiration from ECG 18 SpO2 95 I&O: 11/26/18 11/27/18 11/28/18 06:59 06:59 06:59 Intake Total 6632 4840 250 Output Total 2100 2700 500 Balance 4541 2140 -250 Result Diagrams: 11/27/18 10:53 11/27/18 10:53 Phys Exam - Physical Examination Neck: no nodes, no JVD, supple, full ROM Respiratory: no wheezing, no rales, no rhonchi, wheezing present, clear to auscultation bilateral Cardiovascular: RRR, no significant murmur, no rub, gallop, irregular Gastrointestinal: soft, non-tender, no distention, positive bowel sounds Dx/Plan (1) Sinus tachycardia Code(s): R00.0 - TACHYCARDIA, UNSPECIFIED Status: Acute (2) Crushing injury of left leg Code(s): S87.82XA - CRUSHING INJURY OF LEFT LOWER LEG, INITIAL ENCOUNTER Status: Acute (3) Obesity (BMI 30-39.9) Code(s): E66.9 - OBESITY, UNSPECIFIED Status: Acute - Plan will disconitnue vancomycin i do not think he has any infection -: will monitor. on asa for dvt ppx. PT per ortho * . Review of Systems - Review of Systems Respiratory: negative: Cough, Dry, Shortness of Breath, Hemoptysis, SOB with Excertion, Pleuritic Pain, Sputum, Wheezing Cardiovascular: negative: chest pain, palpitations, orthopnea, paroxysmal nocturnal dyspnea, edema, light headedness, other - Medications/Allergies Allergies/Adverse Reactions: Allergies Allergy/AdvReac Type Severity Reaction Status Date / Time Penicillins Allergy Verified 11/24/18 15:24 Medications: Current Medications Acetaminophen (Tylenol) 650 mg PO Q6H PRN PRN Reason: Headache/Temp >101F/Mild Pain Last Admin: 11/26/18 03:10 Dose: 650 mg Hydrocodone Bitart/Acetaminophen ([place] 5/325) 1 tab PO Q4H PRN PRN Reason: Mild-Moderate Pain (1-5) Hydrocodone Bitart/Acetaminophen ([place] 5/325) 2 tab PO Q4H PRN PRN Reason: Moderate to Severe Pain (6-10) Last Admin: 11/27/18 11:52 Dose: 2 tab Al Hydroxide/Mg Hydroxide (Maalox) 30 ml PO BIDPRN PRN PRN Reason: Heartburn or Indigestion Last Admin: 11/27/18 05:55 Dose: 30 ml Aspirin (Ecotrin) 81 mg PO BID [facility] Last Admin: 11/27/18 07:27 Dose: 81 mg Calcium Carbonate (Tums) 500 mg PO Q4H PRN PRN Reason: Heartburn Last Admin: 11/27/18 04:06 Dose: 500 mg Diphenhydramine HCl (Benadryl) 25 mg IM/IV Q3H PRN PRN Reason: Itching Diphenhydramine HCl (Benadryl) 25 mg PO Q3H PRN PRN Reason: Itching Fentanyl (Sublimaze) 50 mcg SLOW IVP Q1H PRN PRN Reason: Pain Last Admin: 11/25/18 06:19 Dose: 50 mcg Sodium Chloride (1/2 Normal Saline) 1,000 mls @ 125 mls/hr IV .Q8H [facility] Last Admin: 11/27/18 10:18 Dose: Not Given Vancomycin HCl 2 gm/ Sodium (Chloride) 500 mls @ 250 mls/hr IVPB 0400,1200, 2000 [facility] Miscellaneous Information (Communication Order-Pharmacy) 1 each FS ONE [facility] Stop: 12/04/18 12:16 Miscellaneous Medication (Pharmacy To Dose) 1 each IVPB PRN PRN PRN Reason: Pharmacy to dose Naloxone HCl (Narcan) 0.2 mg IV Q5MIN PRN PRN Reason: RR <8 or pt obtun/unarousable Ondansetron HCl (Zofran) 4 mg IVP Q6H PRN PRN Reason: Nausea/Vomiting Last Admin: 11/26/18 10:12 Dose: 4 mg Promethazine HCl (Phenergan) 12.5 mg IM Q4H PRN PRN Reason: Nausea/Vomiting Simethicone (Mylicon Chewable) 80 mg PO Q6H PRN PRN Reason: Gas Pain Last Admin: 11/25/18 20:52 Dose: 80 mg Sodium Chloride (Flush - Normal Saline) 10 ml IVF PRN PRN PRN Reason: Saline Flush Last Admin: 11/27/18 07:27 Dose: 10 ml
[2018-11-28] MEDS: HYDROcodone/Acetaminophen 5/325 mg Tablet PO PRN ×5 (03:16→23:57)
[2018-11-28 03:41] LABS: #Basophils 0.1 thou/uL (0.0-0.2); #Eosinphils 0.5 thou/uL (0.0-0.7); #Lymphocytes 1.7 thou/uL (1.20-3.40); #Monocytes 0.9 thou/uL (0.11-0.59); #Neutrophils 5.9 thou/uL (1.40-6.50); %Basophils 0.7 % (0.0-1.0); %Eosinophils 5.5 % (0.0-10.0); %Lymphocytes 19.1 % (21.0-51.0); %Monocytes 9.5 % (0.0-10.0); %Neutrophils 65.1 % (42.0-75.0); Hemoglobin 9.2 g/dL (14.0-18.0); Mean Corpuscular HGB CONC 33.8 g/dL (32.0-36.0); Mean Corpuscular Hemoglobin 30.1 pg (27.0-31.0); Mean Platelet Volume 6.7 fL (7.4-10.4); Platelet Count 275 thou/uL (130-400); Red Blood Cell (RBC) Count 3.06 mill/uL (4.70-6.10)
[2018-11-28 03:59] LABS: Vancomycin, Trough 22.5 ug/mL
[2018-11-28] MEDS ORDERED: Vancomycin HCl 1.75 GM in Sodium Chloride 0.9% 500 ML IVPB SCH (04:00)
[2018-11-28 04:02] LABS: ALT (SGPT) 12 U/L (8-55); AST (SGOT) 15 U/L (5-34); Albumin 2.6 g/dL (3.5-5.0); Alkaline Phosphatase 62 U/L (40-150); Anion Gap 11 mmol/L (10-20); BUN (Urea Nitrogen) 9 mg/dL (8.9-20.6); Bilirubin, Total 0.5 mg/dL (0.2-1.2); Calc. Creatinine Clearance 244 mL/min (70-130); Calcium 7.7 mg/dL (7.8-10.44); Carbon Dioxide 29 mmol/L (22-29); Chloride 102 mmol/L (98-107); Estimated GFR-MDRD Greater than 90; Globulin 2.8 g/dL (2.4-3.5); Glucose 111 mg/dL (70-105); Potassium 3.6 mmol/L (3.5-5.1); Protein, Total 5.4 g/dL (6.0-8.3); Sodium 138 mmol/L (136-145)
[2018-11-28] MEDS: Sodium Chloride 0.45% 1,000 ML IV SCH ×2 (04:40→16:29)
[2018-11-28] MEDS: Aspirin 81 mg Enteric Coated Tablet PO SCH ×2 (07:31→20:03)
--- NOTE | 2018-11-28 16:28 | PDOC.PN ---
- Subjective Encounter Start Date: 11/28/18 Encounter Start Time: 16:00 Subjective: pt up in bed has some pain - Objective Vital Signs & Weight: Vital Signs (12 hours) Temp Pulse Resp BP Pulse Ox 11/28/18 15:27 97.9 F 114 H 16 134/85 99 11/28/18 11:29 97.8 F 120 H 16 134/86 97 11/28/18 07:15 98.1 F 105 H 12 115/81 97 Weight Weight 280 lb Most Recent Monitor Data Heart Rate from ECG 112 NIBP 108/75 NIBP BP-Mean 86 Respiration from ECG 18 SpO2 95 I&O: 11/27/18 11/28/18 11/29/18 06:59 06:59 06:59 Intake Total 4840 2900 Output Total 2700 2600 Balance 2140 300 Result Diagrams: 11/28/18 03:14 11/28/18 03:14 Phys Exam - Physical Examination Neck: no nodes, no JVD, supple, full ROM Respiratory: no wheezing, no rales, no rhonchi, wheezing present, clear to auscultation bilateral Cardiovascular: RRR, no significant murmur, no rub, gallop, irregular Gastrointestinal: soft, non-tender, no distention, positive bowel sounds Dx/Plan (1) Sinus tachycardia Code(s): R00.0 - TACHYCARDIA, UNSPECIFIED Status: Acute (2) Crushing injury of left leg Code(s): S87.82XA - CRUSHING INJURY OF LEFT LOWER LEG, INITIAL ENCOUNTER Status: Acute (3) Obesity (BMI 30-39.9) Code(s): E66.9 - OBESITY, UNSPECIFIED Status: Acute - Plan Recommended stool softners pt refused. stated he will go when -: it is time. pt on pain meds and has been getting up with PT -: dispo per ortho. all abx discontinued. pt encouraged to get up * . Review of Systems - Review of Systems Respiratory: negative: Cough, Dry, Shortness of Breath, Hemoptysis, SOB with Excertion, Pleuritic Pain, Sputum, Wheezing Cardiovascular: negative: chest pain, palpitations, orthopnea, paroxysmal nocturnal dyspnea, edema, light headedness, other Gastrointestinal: negative: Nausea, Vomiting, Abdominal Pain, Diarrhea, Constipation, Melena, Hematochezia, Other - Medications/Allergies Allergies/Adverse Reactions: Allergies Allergy/AdvReac Type Severity Reaction Status Date / Time Penicillins Allergy Verified 11/24/18 15:24 Medications: Current Medications Acetaminophen (Tylenol) 650 mg PO Q6H PRN PRN Reason: Headache/Temp >101F/Mild Pain Last Admin: 11/26/18 03:10 Dose: 650 mg Hydrocodone Bitart/Acetaminophen ([place] 5/325) 1 tab PO Q4H PRN PRN Reason: Mild-Moderate Pain (1-5) Hydrocodone Bitart/Acetaminophen ([place] 5/325) 2 tab PO Q4H PRN PRN Reason: Moderate to Severe Pain (6-10) Last Admin: 11/28/18 13:56 Dose: 2 tab Al Hydroxide/Mg Hydroxide (Maalox) 30 ml PO BIDPRN PRN PRN Reason: Heartburn or Indigestion Last Admin: 11/27/18 18:30 Dose: 30 ml Aspirin (Ecotrin) 81 mg PO BID [facility] Last Admin: 11/28/18 07:31 Dose: 81 mg Calcium Carbonate (Tums) 500 mg PO Q4H PRN PRN Reason: Heartburn Last Admin: 11/27/18 04:06 Dose: 500 mg Diphenhydramine HCl (Benadryl) 25 mg IM/IV Q3H PRN PRN Reason: Itching Diphenhydramine HCl (Benadryl) 25 mg PO Q3H PRN PRN Reason: Itching Fentanyl (Sublimaze) 50 mcg SLOW IVP Q1H PRN PRN Reason: Pain Last Admin: 11/25/18 06:19 Dose: 50 mcg Sodium Chloride (1/2 Normal Saline) 1,000 mls @ 125 mls/hr IV .Q8H [facility] Last Admin: 11/28/18 04:40 Dose: 1,000 mls Miscellaneous Information (Communication Order-Pharmacy) 1 each FS ONE [facility] Stop: 12/04/18 12:16 Miscellaneous Medication (Pharmacy To Dose) 1 each IVPB PRN PRN PRN Reason: Pharmacy to dose Naloxone HCl (Narcan) 0.2 mg IV Q5MIN PRN PRN Reason: RR <8 or pt obtun/unarousable Ondansetron HCl (Zofran) 4 mg IVP Q6H PRN PRN Reason: Nausea/Vomiting Last Admin: 11/26/18 10:12 Dose: 4 mg Promethazine HCl (Phenergan) 12.5 mg IM Q4H PRN PRN Reason: Nausea/Vomiting Simethicone (Mylicon Chewable) 80 mg PO Q6H PRN PRN Reason: Gas Pain Last Admin: 11/25/18 20:52 Dose: 80 mg Sodium Chloride (Flush - Normal Saline) 10 ml IVF PRN PRN PRN Reason: Saline Flush Last Admin: 11/27/18 07:27 Dose: 10 ml
[2018-11-29] MEDS: Sodium Chloride 0.45% 1,000 ML IV SCH ×2 (00:31→08:58)
[2018-11-29] MEDS: Mag-Al 1200 mg/1200 mg/30 ML UDCUP PO PRN (01:51)
[2018-11-29] MEDS: HYDROcodone/Acetaminophen 5/325 mg Tablet PO PRN ×4 (05:23→17:12)
[2018-11-29] MEDS: Aspirin 81 mg Enteric Coated Tablet PO SCH (08:58)
[2018-11-29 11:59] VITALS: BP 140/87; TEMP 98
--- NOTE | 2018-12-04 21:23 | OP ---
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 PROCEDURES PERFORMED: 1. Removal of retrograde femoral nail, left. 2. Open reduction and internal fixation of left distal femoral shaft with lateral plate. 3. Iliac crest bone graft harvest. 4. Iliac crest bone grafting to the left distal femur nonunion. 5. Onlay of infuse bone morphogenic protein. ANESTHESIA: General. COSURGEON: Reg Betancourt MD DOCK COORDINATOR: China Crandall PA-C. IMPLANT: Synthes curved condylar distal femoral plate, 12-hole. COMPLICATIONS: None. DRAINS: None. SPECIMEN: None. OUTCOME: Stable plating of left femur nonunion. INDICATIONS: Mr. Espinoza is a 37-year-old gentleman status post open left distal femur fracture that was initially treated with a retrograde intramedullary nail with subsequent FABIANA bone grafting. Unfortunately, he became infected and required an irrigation and debridement procedure with removal of much of the bone graft material. The patient is now 2 months off antibiotics with no evidence of infection. However, he now has a nonunion with evidence of some loosening of the distal femoral hardware. After discussion with the patient including risks, benefits, we have decided to proceed with removal of nail plating and iliac crest bone graft. Informed consent has been obtained, I believe all questions have been answered. DESCRIPTION OF PROCEDURE: The patient was brought to the operating room and a time-out performed followed by induction of general anesthesia. The patient was then positioned supine on the OR table and a sterile prep and drape was performed of the left lower extremity including the anterior iliac crest. Next, attention was placed at the knee using the same midline anterior knee incision. The skin was incised, and then dissection carried down around the patellar tendon. At this point, the end of the nail could be identified and the extraction device attached to it. Two lateral to medial locking screws were removed without difficulty and then a single anterior to posterior proximal locking screw removed this through a separate incision. Once the locking screws had been removed, the nail was removed without difficulty. A reamer was then passed up the canal just to remove the membrane from the canal as part of the debridement procedure. Next, a lateral incision was made at the distal femur. After skin was sharply incised, dissection was carried down bluntly exposing the IT band. This was incised in line with the skin incision and reflected anteriorly and posteriorly gaining access to the lateral aspect of the distal femur and the distal femoral shaft. Using the same incision, the dissection was carried further proximally and then the vastus lateralis and quadriceps reflected off the anterior surface of the distal femur, exposing the fracture. A rongeur and curette were used to remove some fibrinous scar that was at the fracture gap as well as to debride some nonviable bone fragments. Once the femur was brought back to what was felt to be bleeding bone edges and viable bone, a lateral plate was applied to the distal femur. It should be noted that the wound was thoroughly irrigated prior to plate application. The plate was brought up in a submuscular fashion along the lateral cortex of the femur. It was held in place with a combination of locking screws distally and then a combination of cortical and locking screws proximally through multiple small stab wounds at the lateral thigh. Once stabilized, attention was placed at improving the biology at the nonunion site and iliac crest graft was chosen for this. A curvilinear incision was made extending from the anterior superior iliac spine posteriorly along the crest. After skin was sharply incised, dissection was carried down bluntly to the underlying fascia at the anterior crest. This was incised in line with the crest and then reflected posteriorly. A tricortical graft was harvested using osteotomes. This was taken to the back table and split in 2 to provide 2 large cortical cancellous struts. Next, curettes were used to further harvest cancellous bone from between the inner and outer tables. Once accomplished, this bone was then packed in the fracture gaps at the nonunion site through the distal lateral skin incision. At the completion of this, infuse had been prepared and the infuse patch pads were placed over the top of the bone graft to further stimulate bone healing. At the completion of this, AP, lateral, C-arm images were obtained that showed good alignment of the femur with apposition of bone and graft that was filling the fracture gaps. Next, attention was placed at the iliac crest site. This was irrigated using Pulsavac and then closed with #1 Vicryl for the fascia over the top of the crest, followed by 0 Vicryl for Sherman layer and then 2-0 Vicryl subcutaneously and maki for the skin. The midline anterior knee incision was closed in layers with 0 Vicryl for the peritenon, 2-0 Vicryl subcutaneously and maki and then the lateral incision was closed in layers with #1 Vicryl for the IT band, followed by 2-0 Vicryl and then maki for the skin, and maki also used for the small stab wounds for the proximal screws. With completion of this, Xeroform gauze, Webril, Mars wrap dressing and knee immobilizer were applied to the leg and then the patient was transferred to recovery room in stable condition. There were no complications and the patient tolerated the procedure well. Job ID: [id number]
== END 2018-11-29 17:20 | disposition home or self-care (01) | DRG 481 ==
LOC: SURG A 05:55 → SJJU 13:46 → CCU 11-26 03:35 → SURG A 11-27 10:41
PROVIDERS: ADMIT Orthopaedic Surgery; ATTEND Orthopaedic Surgery
PROC: 0QS706Z Reposition Left Upper Femur with Intramedullary Internal Fixation Device, Open Approach (ICD-10-PCS; principal; 2018-11-25)
PROC: 0QB30ZZ Excision of Left Pelvic Bone, Open Approach (ICD-10-PCS; 2018-11-25)
PROC: 0QP704Z Removal of Internal Fixation Device from Left Upper Femur, Open Approach (ICD-10-PCS; 2018-11-25)
DX: S72.92XK Unspecified fracture of left femur, subsequent encounter for closed fracture with nonunion (principal); Z68.41 Body mass index [BMI] 40.0-44.9, adult; S87.82XA Crushing injury of left lower leg, initial encounter; R00.0 Tachycardia, unspecified; E66.9 Obesity, unspecified; D72.829 Elevated white blood cell count, unspecified; D64.9 Anemia, unspecified
CPT/HCPCS: 36415; 71045; 71275; 76000; 80053; 80202; 81001; 83735; 84484; 85025; 85379; 87040; 87086; 93005; 93010; 93970; C1713; C1769; J0670; J0690; J1170; J1885; J2001; J2185; J2250; J2270; J2274; J2405; J2704; J3010; J3370; J7050; J7070; Q9967

== ENCOUNTER 2019-09-26 12:21 | Outpatient (CLI) | payer OTHER ==
--- NOTE | 2019-09-26 14:02 | CT ---
CT OF THE LEFT LOWER EXTREMITY WITHOUT CONTRAST: INDICATION: Persistent left lower extremity pain. COMPARISON: CT of the left lower extremity of 08/18/2018. FINDINGS: Since the comparison examination, there has been interval removal of the intramedullary lenora and place ment of a long lateral MANUELITO plate screw and construct. There has been some interval incomplete heali ng involving the posterior and lateral aspect of the distal femoral shaft fracture. There is an inte rfragmentary screw traversing a comminuted segment of the distal left femoral fracture that has been intervally placed. There is overlying soft tissue scar involving the medial, distal, and anterior le ft thigh. No overt drainable fluid collection is evident. There is no overt evidence to suggest abdirashid dware failure. IMPRESSION: Revision of the instrumentation fixating the patient's comminuted left distal femoral shaft fracture. There has been interval incomplete healing of the distal left femoral shaft fracture with the major ity of bridging bone callus seen along the posterior and lateral margin of the fracture site. POS: [facility]
== END 2019-09-26 12:22 | disposition home or self-care (01) ==
LOC: BICCT 12:21
PROVIDERS: ATTEND Orthopaedic Surgery
DX: S72.352 Displaced comminuted fracture of shaft of left femur (principal)